=== PATIENT | female | born 1960 | race Caucasian/White ===

== ENCOUNTER 2023-05-05 08:22 | Outpatient (CLI) | payer OTHER, SELFPAY ==
[2023-05-05 09:00] VITALS: PULSE 103; O2SAT 93
[2023-05-05 09:01] VITALS: PULSE 113; O2SAT 87
[2023-05-05 09:02] VITALS: O2SAT 88
[2023-05-05 09:03] VITALS: PULSE 130; O2SAT 91
[2023-05-05 09:08] LABS: Alveolar/Arterial O2 Gradient 35.6 mmHg; Carboxyhemoglobin 1.6 % THb (0-2.0); Fractional Inspired Oxygen 21 %; HCO3 ABG 26.1 mEq/l (22.0-26.0); Methemoglobin ABG 0.3 %THb (0-1.5); Oxygen Content ABG 16.7 %vol (16.0-22.0); PCO2 ABG 48.2 mmHg (35.0-45.0); PO2 ABG 56.4 mmHg (80.0-100.0); PO2 FiO2 Ratio Arterial Blood 2.69 %; Reduced Hemoglobin 11.1 %THb (0-5.0); Total Hemoglobin 13.7 g/dL (12.0-18.0); pH ABG 7.352 (7.350-7.450)
[2023-05-05 09:12] LABS: Oxygen Saturation ABG 87.8 % (95.0-100.0)
[2023-05-05 09:13] LABS: Device ROOM AIR; Modified Allen's Test Pass
[2023-05-05 09:15] VITALS: PULSE 106; O2SAT 93
--- NOTE | 2023-05-05 10:03 | ECHO_ITS ---
Patient Info Name: Maria Guadalupe Hough Age: 62 years : 1960 Gender: Female Ht: 67 in Wt: 144 lbs BSA: 1.76 m2 HR: 113 bpm BP: 140 / 92 mmHg Heart Rhythm: Sinus Rhythm Technical Quality: Fair Exam Date: 05/05/2023 10:05 AM Exam Location: Echo Lab Patient Status: Outpatient Admit Date: 05/05/2023 Staff Ordering Physician: Mina Pitt MD Singeing Torch Operator: Janet Montgomery RDCS Attending Provider: Mina Pitt MD Referring Physician: Yoandy BIRMINGHAM; Exam Type: CA echo doppler color flow Study Info Indications R06.02 - Shortness of breath Complete two-dimensional, color flow and Doppler transthoracic echocardiogram is performed. Summary 1. Complete two-dimensional, color flow and Doppler transthoracic echocardiogram is performed. 2. Left ventricular chamber dimension is normal. 3. Ventricular septum is sigmoid shaped. No LVOT obstruction. 4. Left ventricular systolic function is hyperdynamic, estimated at >70%. 5. The left ventricular diastolic function is grade I diastolic dysfunction. 6. E/e' 6 is not elevated. 7. There is moderate aortic valve sclerosis. 8. No pulmonary hypertension, estimated pulmonary arterial systolic pressure is 39 mmHg. Left Ventricle E/e' 6 is not elevated. Ventricular septum is sigmoid shaped. No LVOT obstruction. Left ventricular chamber dimension is normal. Left ventricular systolic function is hyperdynamic, estimated at >70%. The left ventricular diastolic function is grade I diastolic dysfunction. Right Ventricle Right ventricular systolic function is normal and with normal TAPSE 1.9 cm. Right ventricular chamber dimension is normal. Left Atria Left atrial chamber dimension is normal. Right Atria Right atrial chamber dimension is normal. Aortic Valve The aortic valve is trileaflet. There is moderate aortic valve sclerosis. There is no aortic valve stenosis. There is no aortic valve regurgitation. Pulmonic Valve There is no pulmonic regurgitation. Mitral Valve There is no mitral valve stenosis. There is no mitral valve regurgitation. Tricuspid Valve There is no tricuspid valve regurgitation. No pulmonary hypertension, estimated pulmonary arterial systolic pressure is 39 mmHg. Pericardium/Pleural There is no pericardial effusion. Inferior Vena Cava Normal inferior vena cava with >50% collapse upon inspiration consistent with normal right atrial pressure, 5 mmHg. Aorta The aortic root size at the sinus of Valsalva is normal. Left Ventricular Outflow Tract Name Value Normal LVOT 2D LVOT Diameter 2.0 cm LVOT Doppler LVOT Peak Gradient 8 mmHg LVOT Mean Gradient 4 mmHg LVOT VTI 26 cm LVOT VTI/AV VTI Ratio 0.9 LVOT Stroke Volume 80 ml LVOT CO 7.4 l/min LVOT CI 4.2 l/min/m2 Pulmonic Valve Name Value Normal RVOT Doppler
--- NOTE | 2023-05-05 11:41 | HOMEO2EVAL ---
Evaluation was performed at [facility] Home Oxygen Evaluation RC: Home Oxygen (O2) Evaluation Start: 05/05/23 11:38 Freq: Status: Active Protocol: RPE Activity Type Activity Date Activity User E-sign Co-sign Detail Recorded Client Recorded Date Recorded By Document 05/05/23 09:00 [email or web address] [email or web address] 05/05/23 11:40 LICO Document 05/05/23 09:01 LICO [email or web address] 05/05/23 11:40 LICO Document 05/05/23 09:02 LICO [email or web address] 05/05/23 11:40 LICO Document 05/05/23 09:03 LICO [email or web address] 05/05/23 11:40 LICO Document 05/05/23 09:15 LICO [email or web address] 05/05/23 11:40 LICO 05/05/23 05/05/23 05/05/23 09:00 09:01 09:02 Home O2 Evaluation [Oxygen] -Test Phase Resting Exercise Exercise -Oxygen Delivery Room Air Room Air Nasal Cannula -Oxygen Flow Rate (L/min) 1 [Pulse Oximetry] -Pulse Oximetry (90-100 %) 93 87 L 88 L [Pulse Rate] -Pulse Rate (60-100 beats/min) 103 H 113 H [Exercise] -Ambulation Distance (feet) -Ambulation Distance (meters) [Comments] -Home Oxygen Evaluation Comments [Charges] -Treatment Charges O2 Evaluation - Outpatient 05/05/23 05/05/23 09:03 09:15 Home O2 Evaluation [Oxygen] -Test Phase Exercise Resting -Oxygen Delivery Nasal Cannula Room Air -Oxygen Flow Rate (L/min) 2 [Pulse Oximetry] -Pulse Oximetry (90-100 %) 91 93 [Pulse Rate] -Pulse Rate (60-100 beats/min) 130 H 106 H [Exercise] -Ambulation Distance (feet) 700 -Ambulation Distance (meters) 213.34 [Comments] -Home Oxygen Evaluation Comments PT REQUIRES 2 L WITH ACTIVITY. [Charges] -Treatment Charges
--- NOTE | 2023-05-05 12:26 | WPDPFTINT ---
PFT Procedure Performed PFT Procedure Performed Spirometry with Pre/Post Bronchodilator Plethysmography (Lung Vol) Diffusing Cap (DLCO) Flow Vol Loop PFT Interpretation This is a pulmonary function test with pre and post-bronchodilator spirometry, plethysmography and diffusing capacity. The test was performed and results interpreted in accordance with the 2019 and 2005 ATS/ERS Task Force guidelines respectively using the Global Lung Function Initiative-2012 reference equations. Patient demonstrated good effort and cooperation. Reproducibility criteria were met. The quality of the pre bronchodilator spirometry maneuver was Grade A and post bronchodilator spirometry maneuver was Grade B. Findings: Spirometry: There is decreased maximal expiratory airflow at all lung volumes with concave expiratory flow tracing. The contour the inspiratory flow tracing is normal. The pre bronchodilator FVC is 1.98 L, 57% predicted. The pre bronchodilator FEV1 is 0.52 L, 19% predicted. The pre bronchodilator FEV1: FVC ratio is 27%. The post bronchodilator FVC is 1.70 L, representing a 14% decrease. The post bronchodilator FEV1 is 0.47 L, representing a 9% decrease. The post bronchodilator FEV1: FVC ratio is 28%. Plethysmography: The total lung capacity is 6.33 L, 115% predicted. The functional residual capacity is 4.60 L, 147% predicted. The residual volume is 3.89 L, 180% predicted. Diffusing capacity: The diffusing capacity unadjusted for hemoglobin and carboxyhemoglobin is 6.6, 29% predicted. The diffusing capacity adjusted for alveolar volume is 1.76, 41% predicted. Rest room air blood gas: PH 7.35, PaCO2 48.2, PaCO2 56.4. Impression: There is a very severe obstructive abnormality without significant improvement after inhaling a single dose of albuterol. The increase in residual volume is consistent with air trapping from an obstructive abnormality. Hyperinflation is present as demonstrated by the increase in functional residual capacity and is consistent with an obstructive abnormality. The diffusing capacity unadjusted for hemoglobin and carboxyhemoglobin is severely decreased and remains moderately decreased when adjusted for alveolar volume. The arterial blood gas demonstrates a compensated respiratory acidosis with hypoxia that does not qualify for supplemental oxygen. There are no prior studies for comparison
== END 2023-05-05 08:23 | disposition home or self-care (01) ==
PROVIDERS: Visit Provider Internal Medicine Pulmonary Disease
DX: J44.9 Chronic obstructive pulmonary disease, unspecified (principal); I35.8 Other nonrheumatic aortic valve disorders; R93.1 Abnormal findings on diagnostic imaging of heart and coronary circulation
CPT/HCPCS: 36600; 82375; 82805; 83050; 93306; 94060; 94618; 94726; 94729

== ENCOUNTER 2023-08-18 14:29 | Outpatient (CLI) | payer OTHER, SELFPAY ==
--- NOTE | ~2023-08-18 | CT_ITS ---
EXAMINATION:CT lung screening DATE: 08/18/2023 14:50 INDICATION: Personal history of nicotine dependence. Current smoker with 44 pack year history. TECHNIQUE: Computed tomography (CT) of the chest was performed without intravenous contrast. Automate d exposure control and iterative reconstruction technique were employed. The dose-length product (DLP ) was 66.64 mGy-cm. COMPARISON: None. FINDINGS: There is severe emphysema. There is a 5 mm nodule in right lower lobe. A calcified right leatha ng nodule is consistent with old granulomatous disease. There is an 8 mm nodule in left upper lobe. T here is a 7 mm nodule in left upper lobe. There is scarring in the upper lobes. No pleural effusion. The heart size is normal. There are coronary artery calcifications. No pericardial effusion. There is mild mediastinal lymphadenopathy, likely reactive. Aortic atherosclerosis is noted. There is mild th oracic spondylosis. IMPRESSION: 1. Lung-RADS category 4A: Suspicious. Noncontrast low-dose chest CT is recommended in 3 months. Reviewed, dictated and finalized at location E. IN BAND WRAPPER IMPRESSION: 1. Lung-RADS category 4A: Suspicious. Noncontrast low-dose chest CT is recommen ded in 3 months.
== END 2023-08-18 14:30 | disposition home or self-care (01) ==
PROVIDERS: PCP Family Medicine; Visit Provider Internal Medicine Pulmonary Disease
DX: Z12.2 Encounter for screening for malignant neoplasm of respiratory organs (principal); F17.210 Nicotine dependence, cigarettes, uncomplicated
CPT/HCPCS: 71271

== ENCOUNTER 2023-12-07 12:46 | Outpatient (CLI) | payer OTHER, SELFPAY ==
--- NOTE | ~2023-12-07 | CT_ITS ---
CT Scan of the Chest without Contrast: Clinical Indication: Abnormal findings of lung field Technique: Contiguous sections were acquired throughout the chest without intravenous contrast. Dose reduction technique was used on this scan by utilizing automated exposure control and iterative recon struction technique. The dose-length product (DLP) was 72.10 mGy-cm. COMPARISON: 08/18/2023 Findings: There is no evidence of any significant mediastinal, hilar or axillary lymphadenopathy. The mediastin al soft tissues appear normal. There is no evidence of pleural or pericardial effusion. Significant interval increase in nodular, irregular consolidation versus nodule at the right lung ape x, density now measuring 3.6 x 2.6 cm in extent (axial image 19). Stable 7 mm posterior left upper lo be pulmonary nodule (axial image 33). Stable 9 mm nodule at the anterior left lung apex (axial image 21). Severe emphysema again noted. Images through the upper abdomen reveal no abnormalities. Impression: Significant interval increase in consolidation or nodule at the right lung apex, now measuring 3.6 x 2.6 cm in extent. Findings could reflect pneumonia, atelectasis, or neoplasm. Consider tissue samplin g, PET/CT, or possibly short interval CT in 1 month, to further assess. Stable subcentimeter pulmonary nodules left upper lobe, as above. Severe emphysema. Reviewed, dictated and finalized at location . Impression: Significant interval increase in consolidation or nodule at the right lung apex , now measuring 3.6 x 2.6 cm in extent. Findings could reflect pneumonia, atele ctasis, or neoplasm. Consider tissue sampling, PET/CT, or possibly short interv al CT in 1 month, to further assess. Stable subcentimeter pulmonary nodules left upper lobe, as above. Severe emphysema.
== END 2023-12-07 12:47 | disposition home or self-care (01) ==
PROVIDERS: PCP Family Medicine; Visit Provider Internal Medicine Pulmonary Disease
DX: R91.8 Other nonspecific abnormal finding of lung field (principal); J43.9 Emphysema, unspecified
CPT/HCPCS: 71250

== ENCOUNTER 2024-01-11 11:02 | Outpatient (CLI) | payer OTHER, SELFPAY ==
--- NOTE | ~2024-01-11 | CT_ITS ---
CT Scan of the Chest without Contrast: Clinical Indication: Abnormal finding of lung field Technique: Contiguous sections were acquired throughout the chest without intravenous contrast. Dose reduction technique was used on this scan by utilizing automated exposure control and iterative recon struction technique. The dose-length product (DLP) was 154.90 mGy-cm. COMPARISON: 12/07/2023 Findings: There is no evidence of any significant mediastinal, hilar or axillary lymphadenopathy. The mediastin al soft tissues appear normal. There is no evidence of pleural or pericardial effusion. There is stable irregular masslike consolidation at the right lung apex. Stable 9 mm left apical pulm onary nodule. Severe emphysema is present. Several calcified granulomas are present. Images through the upper abdomen reveal no abnormalities. Impression: Irregular masslike consolidation right lobe apex is unchanged from most recent prior exam. Stable 9 mm left apical pulmonary nodule. Severe emphysema. Reviewed, dictated and finalized at [facility]. Impression: Irregular masslike consolidation right lobe apex is unchanged from most recent prior exam. Stable 9 mm left apical pulmonary nodule. Severe emphysema.
== END 2024-01-11 11:03 | disposition home or self-care (01) ==
PROVIDERS: PCP Family Medicine; Visit Provider Internal Medicine Pulmonary Disease
DX: R91.8 Other nonspecific abnormal finding of lung field (principal); J43.9 Emphysema, unspecified; R91.1 Solitary pulmonary nodule
CPT/HCPCS: 71250

== ENCOUNTER 2024-04-18 12:59 | Outpatient (CLI) | payer OTHER, SELFPAY ==
--- NOTE | ~2024-04-18 | CT_ITS ---
CT Scan of the Chest without Contrast: Clinical Indication: Lung nodule Technique: Contiguous sections were acquired throughout the chest without intravenous contrast. Dose reduction technique was used on this scan by utilizing automated exposure control and iterative recon struction technique. The dose-length product (DLP) was 67.75 mGy-cm. COMPARISON: 01/11/2024 Findings: There is no evidence of any significant mediastinal, hilar or axillary lymphadenopathy. The mediastin al soft tissues appear normal. There is no evidence of pleural or pericardial effusion. Somewhat irregular masslike consolidation at the right lung apex measures 3.1 x 1.8 cm, similar appea david to prior exam. Stable 1 cm left apical pulmonary nodule anteriorly (axial image 16). Severe emp hysema present. Images through the upper abdomen reveal stable left adrenal adenoma. Impression: Stable area somewhat masslike consolidation at the right lung apex. Stable 1 cm left apical pulmonary nodule. Severe emphysema. Reviewed, dictated and finalized at [facility]. Impression: Stable area somewhat masslike consolidation at the right lung apex. Stable 1 cm left apical pulmonary nodule. Severe emphysema.
== END 2024-04-18 13:00 | disposition home or self-care (01) ==
PROVIDERS: PCP Family Medicine; Visit Provider Internal Medicine Pulmonary Disease
DX: R91.8 Other nonspecific abnormal finding of lung field (principal); J43.9 Emphysema, unspecified
CPT/HCPCS: 71250

== ENCOUNTER 2024-10-17 15:59 | Outpatient (CLI) | payer OTHER, SELFPAY ==
--- NOTE | ~2024-10-17 | CT_ITS ---
CT Scan of the Chest without Contrast: Clinical Indication: COPD Technique: Contiguous sections were acquired throughout the chest without intravenous contrast. Dose reduction technique was used on this scan by utilizing automated exposure control and iterative recon struction technique. The dose-length product (DLP) was 153.70 mGy-cm. COMPARISON: 04/18/2024 Findings: There is no evidence of any significant mediastinal, hilar or axillary lymphadenopathy. The mediastin al soft tissues appear normal. There is no evidence of pleural or pericardial effusion. Advanced emphysema present. Stable somewhat triangular-shaped irregular nodule in the right lung apex with associated scarring. Stable 7 mm nodule in the posterior medial left upper lobe (axial image 40 ). Stable additional 1 cm left upper lobe/left apical nodule anteriorly (axial image 26). There is in creased focal right basilar irregular airspace consolidation (axial image 121 for example), which cou ld reflect atelectasis versus focal pneumonia. Images through the upper abdomen reveal 1.8 cm low-density left adrenal nodule, compatible with adeno ma. Impression: Irregular space consolidation the right lung base could reflect focal atelectasis versus pneumonia. C orrelate clinically. Stable triangular-shaped irregular nodule/consolidation in the right lung apex with associated scarri ng. Stable left upper lobe nodules, as detailed above. Reviewed, dictated and finalized at location M. Impression: Irregular space consolidation the right lung base could reflect focal atelectas is versus pneumonia. Correlate clinically. Stable triangular-shaped irregular nodule/consolidation in the right lung apex with associated scarring. Stable left upper lobe nodules, as detailed above.
--- OUTSIDE RECORDS SUMMARY | 2024-10-17 17:46 | XMS_ITS | Encounter Summary ---
Author Organization [facility] Address [address] [place] [address] Care Team Providers Care Oil Paint Shader Name Role Phone Rosario Malave MD Primary Care Provider [phone]- [phone] Macarena Mott NP Primary Care Provider [phone] -[phone] Encounter Details Date Type Department Care Team (Late st Contact Info) Description 08/27/2021 [employer] Message Enc [facility] Family Medicine [facility] [address] [place] [address] [place] [address] Rosario Malave MD [address] [place] [id number] Sleep study results Social History Tobacco Use Types Packs/Day Years Used Date Smoking Tobacco: Every Day Cigarettes Smokeless Tobacco: Never Alcohol Use Standard Drinks/Week Comments Yes 0 (1 standard drink = 0.6 oz pur e alcohol) Vodka PHQ-2 Answer Date Recorded PHQ-2 Score - If the patient scores above 3, please move on to questions 3-9 2 07/23/2021 Comments No Sex and Gender Information Value Date Recorded Sex Assigned at Not on file Legal Sex Female 11:00 AM CDT Gender Identity Female 10/22/2021 8:11 AM CDT Sexual Orientation Straight 10/22/2021 8: 11 AM CDT COVID-19 Exposure Response Date Recorded In the last 10 days, have yo u been in contact with someone who was confirmed or suspected to have Coronavirus/COVID-19? 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
--- OUTSIDE RECORDS SUMMARY | 2024-10-17 17:46 | XMS_ITS | Encounter Summary ---
Author Organization [facility] Address [address] [place] [address] Care Team Providers Care Checker Product Design Name Role Phone Rosario Malave MD Primary Care Provider [phone]- [phone] Macarena Mott NP Primary Care Provider [phone] -[phone] Encounter Details Date Type Department Care Team (Late st Contact Info) Description 03/17/2022 [employer] Message Enc [facility] Family Medicine [facility] [address] [place] [address] [place] [address] Rosario Malave MD [address] [place] [id number] Follow up info Social History Tobacco Use Types Packs/Day Years [...] suspected to have Coronavirus/COVID-19? No / Unsure 02/19/2022 7:50 AM CDT documented as of this encounter Plan of Treatment Not on file documented as of this encounter Visit Diagnoses Not on filedocumented in this encounter Additional Health Concerns Assessment Noted Time PHQ-9 Depression Total Score: 2 07/23/19 22 2:07 PM MANAGER ANDROID documented as of this encounter Care Teams Checker Product Design Relationship Specialty Start Date End Date Rosario Malave MD PCP - General FAMILY PRACTICE 04/04/21 09/08/22 Macarena Mott NP PCP - General Nurse Practitioner Family 09/09/22 documented as of this encounter
--- OUTSIDE RECORDS SUMMARY | 2024-10-17 17:46 | XMS_ITS | Encounter Summary ---
Author Organization [facility] Address [address] [place] [address] Care Team Providers Care Diesel Mechanic Helper Name Role Phone Rosario Malave MD Primary Care Provider [phone]- [phone] Macarena Mott NP Primary Care Provider +1 -[phone] Encounter Details Date Type Department Care Team (Late st Contact Info) Description 04/14/2022 [employer] Message Enc [facility] Medical [facility] Family Medicine [facility] [address] [place] [address] [place] [address] [place] [address] Rosario Malave MD [address] [place] [address] [phone] Husain Social History Tobacco Use Types Packs/Day Years [...] Orientation Straight 10/22/2021 8: 11 AM CDT documented as of this encounter Progress Notes * Suzy Herrera LPN - 04/14/2022 10:22 AM CDTFrom: Sophia Hough To: Dr. Rosario Husain Sent: 04/14/2022 10:19 AM CDT Subject: Update for Dr Husain Hey Dr Husain just wanted to touch base with you, I started the prednisone and I did ok until the second day of it. I felt like my lungs were spasms and I felt like I was having a panic attack maybe not completely sure. So I did get my to get me some of the CBD oil to try over the weeke . I didn't want to bother anyone and I didn't have the strength to go to the ER. The oil did help me some and calm me down. I thank you and your staff tremendously for everything. documented in this encounter Plan of Treatment Not on file documented as of this encounter Visit Diagnoses Not on filedocumented in this encounter Additional Health Concerns Assessment Noted Time PHQ-9 Depression Total Score: 2 07/23/19 22 2:07 PM LAW PROFESSOR documented as of this encounter Care Teams Diesel Mechanic Helper Relationship Specialty Start Date End Date Rosario Malave MD PCP - General FAMILY PRACTICE 04/04/21 09/08/22 Macarena Mott NP PCP - General Nurse Practitioner Family 09/09/22 documented as of this encounter
--- OUTSIDE RECORDS SUMMARY | 2024-10-17 17:46 | XMS_ITS | Encounter Summary ---
Author Organization [facility] Address [address] [place] [address] Care Team Providers Care Acoustic Engineer Name Role Phone Rosario Malave MD Primary Care Provider [phone]- [phone] Macarena Mott NP Primary Care Provider +1 -[phone] Reason for Referral * Consultation/Treatment (Routine) - Closed Specialty Diagnoses / Procedures Referred By Saman carson Referred To Contact SURGERY Diagnoses Nausea Right upper quadrant pain Procedures OFFICE/OUTPT VISIT,NEW,LEVL III OFFICE/OUTPT VISIT,NEW,LEVL IV OFFICE/OUTPT VISIT,NEW,LEVL V OFFICE/OUTPT VISIT,EST,LEVL III OFFICE/OUTPT VISIT,EST,LEVL IV OFFICE/OUTPT VISIT,EST,LEVL V Rosario Malave MD Phone: tel: fax: Adrian Hummel, DO [address] [place] [address] Phone: tel: fax: Referral ID Status Reason Start Date Expiration Date Visits Re quested Visits Authorized [id number] Closed 03/18/2022 03/18/2023 4 4 Encounter Details Date Type Department Care Team (Late st Contact Info) Description 03/13/2022 [employer] Message Enc [facility] Medical [facility] Family [facility] [address] [place], [place] [id number] Rosario Malave MD [address] [place] [address] [place] [address] Up coming appt. information. Social History Tobacco Use Types Packs/Day Years [...] as of this encounter Progress Notes * Rosario Husain MD - 03/13/2022 4:58 PM CDT Let's see how soon Dr. Hummel can see her * Jeni Murrell RN - 03/13/2022 2:44 PM CDTFrom: Sophia Hough To: Dr. Rosario Husain Sent: 03/13/2022 2:00 PM CDT Subject: Up coming appt. information. Julien Husain just wanted to check with you on the GI rerferal. I am as of now scheduled in April for endoscopy. I am wondering if you could help me out with another physician physician or surgeon. I need to speed up this if I can, I am in just too much pain to wait 2 more months on this. I have been having to use some of my [place] pain med., just to get through the day with this. I just needsome relief. Thank you in advance documented in this encounter Plan of Treatment Scheduled Referrals Name Type Priority Associated Diagnoses Orde r Schedule Ambulatory referral to General Surgery Referral Routine Nausea Right upper quadrant pain Ordered: 03/13/2022 documented as of this encounter Visit Diagnoses Diagnosis Nausea- Primary Nausea alone Right upper quadrant pain Abdominal pain, right upper quadrant documented in this encounter Additional Health Concerns Assessment Noted Time PHQ-9 Depression Total Score: 2 07/23/19 22 2:07 PM MERCHANDISE PRESENTATION MANAGER documented as of this encounter Care Teams Acoustic Engineer Relationship Specialty Start Date End Date Rosario Malave MD PCP - General FAMILY PRACTICE 04/04/21 09/08/22 Macarena Mott NP PCP - General Nurse Practitioner Family 09/09/22 documented as of this encounter
--- OUTSIDE RECORDS SUMMARY | 2024-10-17 17:46 | XMS_ITS | Encounter Summary ---
Author Organization [facility] Address [address] [place] [address] Care Team Providers Care Rotary Engraver Name Role Phone Rosario Malave MD Primary Care Provider +1- [phone] Macarena Mott NP Primary Care Provider [phone] -[phone] Encounter Details Date Type Department Care Team (Late st Contact Info) Description 03/28/2022 [employer] Message Enc [facility] Medical Group Family Medicine [facility] [address] [place] [address] [place] [address] Rosario Malave MD [address] [place] [phone] Upcoming appt. Social History Tobacco Use Types Packs/Day Years [...] Total Score: 2 07/23/19 22 2:07 PM GLOVE PRINTER documented as of this encounter Care Teams Rotary Engraver Relationship Specialty Start Date End Date Rosario Malave MD PCP - General FAMILY PRACTICE 04/04/21 09/08/22 Macarena Mott NP PCP - General Nurse Practitioner Family 09/09/22 documented as of this encounter
--- OUTSIDE RECORDS SUMMARY | 2024-10-17 17:46 | XMS_ITS | Clinical Summary ---
Author Organization [facility] Address [address] [place] [address] Care Team Providers Care Dairy Specialist Name Role Phone Rosario Malave MD Primary Care Provide r Source Comments [facility],non-owned Affiliates and Associated Physician Practices is amultiple site organization consisting of ambulatory clinics and hospital sitesin [place], [place], [place] and [place]. This disclosure is being madepursuant to the Care Everywhere program and may not contain all information available regarding this patient. Last updated 18.[facility] Allergies Active Allergy Reactions Criticality Noted Date Comments Augmentin Shortness of Breath High 07/30/2021 Azithromycin Urticaria Medium 07/30/2021 Medications * Be aware that medications may not be up to date on this document. Alwaysverify current medications with the patient. omeprazole (PRILOSEC) 20 MG capsule Take 20 mg by mouth daily before breakfast Active amLODIPine (NORVASC) 5 MG tablet Take 5 mg by mouth once daily Active cloNIDine (CATAPRES) 0.1 MG tablet Take 0.1 mg by mouth 2 times daily Active montelukast (SINGULAIR) 10 MG tablet Take 10 mg by mouth at bedtime Active DULoxetine (CYMBALTA) 20 MG capsule Take 20 mg by mouth once daily Active losartan (COZAAR) 50 MG tablet Take 50 mg by mouth once daily Active HYDROcodone-acet aminophen (NORCO) 10-325 MG tablet Take 1 tablet by mouth 4 times daily Active albuterol HFA (PROVENTIL; VENTOLIN; PROAIR) 108 (90 Base) MCG/ACT inhaler Inhale 2 puffs by mouth every 6 hours as needed Active Fluticasone-Umec lidin-Vilant (TRELEGY ELLIPTA) 100-62.5-25 MCG/INH Inhale by mouth once daily Active ipratropium (ATROVENT) 0.02 % nebulizer solution Inhale 0.5 mg by mouth every 6 hours Active albuterol (5 MG/ML) 0.5% 2.5 mg, ipratropium 0.02 % 0.5 mg Inhale by mouth every 6 hours Active guaiFENesin ER 12hr (MUCINEX) 600 MG tablet Take 600 mg by mouth once daily as needed for Cough Active acetaminophen CR (TYLENOL ARTHRITIS PAIN) 650 MG tablet Take 650 mg by mouth once daily as needed for Pain Active dicyclomine (Bentyl) 20 MG tablet Take 1 (one) tablet by mouth 4 times daily 120 tablet 2 2 Active polyethylene glycol (Gavilyte-C) 240 g solution Drink 1/2 of prep at 5pm the night before test. Finish the prep at 4am the day of test. 4000 mL 3 Active Active Problems Problem Noted Date Diagnosed Date Degeneration of intervertebral disc of lumbar re gion 02/28/2022 Inflammation of peripheral nerve 02/28/2022 Nicotine dependence, unspecified, uncomplicated 02/28/2022 Opioid use, unspecified with withdrawal 02/29/20 Osteoporosis 02/28/2022 Allergic rhinitis 07/23/2021 Chronic obstructive pulmonary disease 07/23/2021 Gastroesophageal reflux disease without esophagi tis 07/23/2021 Hypertension 07/23/2021 Hot flashes 07/23/2021 Overview (10/31/2021): Has done with clonidine in past Started last visit and doing well on it A&P: No changes Hepatitis C virus infection without hepatic coma 04/18/2021 Overview (09/04/2021): Not sure how she contracted this, 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 Last Assessment & Plan: Referred to [facility] hepartitis B core antibody non reactive No immunity to hepatitis B Genotype 1a 09/03/21 Fibroscan LSM, kPa) median: 4.9 CAP 259 History of substance use disorder 04/18/2021 Overview (07/30/2021): She has a history of alcohol use disorder and had recently relapsed She cites moving 4 times in the last year and uncontrolled back pain as per the reasons she started to self medicate We put her on a course of Librium last week and she detoxed successfully She has been going to AA and although she is not thrilled with the meetings she is getting what she needs out of them and is feeling much better after detoxing Last Assessment & Plan: Congratulated her on her efforts, continue aa Spinal stenosis of lumbar re gion without neurogenic claudication 04/18/2021 Overview (07/30/2021): Has been seeing pain management before they moved here and they had her on hydrocodone 0.5-1 tab up to 3 times a day, normally she would take 1 tablet 2 ibuprofen 3 times a day and that works well for her She has had epidural steroid injections with minimal relief, when she had the last injection she had a bad reaction but has maintained that she would be open to revisiting things if needed She is curious about cannabis, has never really used this much but wonders if it would help her more with pain Last Assessment & Plan: She brought her pain management records with her today and so I was able to review them and add them to the record We discussed referring her back to orthopedics versus resuming medical management and she would like to stay on the medications for now We will resume her back to hydrocodone 10-325 1 tab 3 times daily, I have advised she should avoid taking ibuprofen but instead add an additional Tylenol with these hydrocodone We discussed cannabis certification, I am happy to give her this but she wants to think about it a little bit more We also discussed long-term opioid use, the concern with her history of substance use, the need for close monitoring, urine testing, and a controlled substance agreement She voiced understanding and was agreeable to all of this Chronic pain disorder 07/04/2016 Immunizations Immunization Administration Dates Next Due HEP B VACCINE ADOL/ADULT 2 DOSE 09/22/2021 Family History Medical History Relation Name Comments High Cholesterol Brother CAD (Coronary Artery Disease) Father CVA Father Hypertension Father Other - Cardiac Father [place] Asthma Maternal Grandmother CVA Mother Cancer - Colon Other Step brother Diabetes - Type 2 Other Step brother Relation Name Status Comments Brother Father Maternal Grandmother Mother Other Step brother Other Social History Tobacco Use Types Packs/Day Years Used Date Smoking Tobacco: Every Day Cigarettes Smokeless Tobacco: Never Tobacco Cessation:Ready to Q uit: Yes; Counseling Given: Yes Comments:LESS THAN 1/2 PACK PER DAY Alcohol Use Standard Drinks/Week Comments Not Currently 0 (1 standard drink = 0.6 oz pur e alcohol) Comments Unknown Sex and Gender Information Value Date Recorded Sex Assigned at Not on file Legal Sex Female 8:25 AM CDT Gender Identity Not on file Sexual Orientation Not on file Last Filed Vital Signs Vital Sign Reading Time Taken Comments Blood Pressure 128/93 02/28/2022 12:43 PM CDT Pulse 105 02/28/2022 12:43 PM CDT Temperature 36.2 C (97.2 F) 02/28/2022 12:43 PM CDT Respiratory Rate 18 02/28/2022 12:43 PM CDT Oxygen Saturation 95% 02/28/2022 12:43 PM CDT Inhaled Oxygen Concentration - - Weight 62.2 kg (137 lb 3.2 oz) 02/28/2022 12:43 PM CDT Height 171.5 cm (5' 7.5 ) 02/28/2022 12:43 PM CD T Body Mass Index 21.17 02/28/2022 12:43 PM CDT Plan of Treatment Health Maintenance Due Date Last Done Comments COLOGUARD (AGES 45-75) - COLON CA SCREENING 1961 COLON MONITORING 1961 COLONOSCOPY - COLON CA SCREENING 1961 CT COLONOGRAPHY - COLON CA SCREENING 1961 Colorectal Cancer Screening 1961 FIT - COLON CA SCREENING 1961 FLEX SIG - COLON CA SCREENING 1961 MAMMOGRAM 1961 PAP SMEAR 1961 HIV SCREENING 1976 DTAP/TDAP/TD VACCINES (1 - Tdap) 1980 PNEUMOCOCCAL VACCINE 50+ (1 of 2 - PCV) 1980 ZOSTER VACCINE (1 of 2) 2011 Respiratory Syncytial Virus (RSV) Vaccine Pt: or over 60 yrs (1 - Risk 60-74 years 1-dose series) 2021 HEPATITIS B VACCINE (2 of 3 - 19+ 3-dose series) 10/20/2021 09/22/2021 COVID-19 VACCINE (3 - 2023- season) 2024 01/31/2021, 10/30/2020 DEPRESSION SCREENING 06/29/2024 INFLUENZA VACCINE (Season Ended) 2025 07/23/2021, 05/24/2018, 06/04/2017, Additional history exists LIPID TESTING 02/19/2027 02/19/2022 HEPATITIS C SCREENING Completed 02/28/2022 , 02/19/2022, 11/22/2021, Additional history exists HIB VACCINE Aged Out No longer eligi ble based on patient's age to complete this topic HPV VACCINE Aged Out No longer eligi ble based on patient's age to complete this topic MENINGOCOCCAL (Group B) VACCINE SHARED DECISION-MAKING Aged Out No longer eligible based on patient's age to complete this topic MENINGOCOCCAL GROUPS A/C/Y/W VACCINE Aged Out No longer eligible based on patient's age to complete this topic Goals Goal Patient Goal Type Associated Problems Recent Progress Patient-Stated? Author Medication Management General On track( 022 1:23 PM CDT) Breanne Hare, RN Note: Expected end date: ONGOING Interventions: Take all medications as prescribed Insurance Care Teams Dairy Specialist Relationship Specialty Start Date End Date Rosario Malave MD PCP - General 10/31/21
--- OUTSIDE RECORDS SUMMARY | 2024-10-17 17:46 | XMS_ITS | Encounter Summary ---
Author Organization [facility] Address [address] [place] [id number] Care Team Providers Care Leather Piece Inspector Name Role Phone Rosario Malave MD Primary Care Provider [phone] Macarena Mott NP Primary Care Provider [phone] Encounter Details Date Type Department Care Team (Late st Contact Info) Description 01/21/2022 [employer] Message Enc [facility] Family [facility] [address] [place] [address] [place] [address] Rosario Malave MD [address] [place] [phone] Hydrocodone med. Social History Tobacco Use Types Packs/Day Years [...] Progress Notes * Suzy Herrera LPN - 01/21/2022 2:27 PM CDTFrom: Sophia Hough To: Dr. Rosario Husain Sent: 01/21/2022 10:45 AM CDT Subject: Hydrocodone med. Hey Dr Husain, my hydrocodone refill was put for me on 01/17/22. It Will not be shipped out until tomorrow. Just wanted to know if you could put in a 3day supply at the [facility] for me? From here on out I would like for you to in at the [facility] in [place]. Thank you in advance documented in this encounter Plan of Treatment Not on file documented as of this encounter Visit Diagnoses Diagnosis Spinal stenosis of lumbar region without neurogenic claudication Spinal stenosis, lumbar region, without neurogenic claudication documented in this encounter Additional Health Concerns Assessment Noted Time PHQ-9 Depression Total Score: 2 07/23/19 2:07 PM LOAN SUPERVISOR documented as of this encounter Care Teams Leather Piece Inspector Relationship Specialty Start Date End Date Rosario Malave MD PCP - General FAMILY PRACTICE 04/04/21 09/08/22 Macarena Mott NP PCP - General Nurse Practitioner Family 09/09/22 documented as of this encounter
--- OUTSIDE RECORDS SUMMARY | 2024-10-17 17:46 | XMS_ITS | Clinical Summary ---
Author Organization [facility] Address [facility] [place] [address] Care Team Providers Care High Heel Builder Name Role Phone Macarena Mott NP Primary Care Provider [phone] [phone] Allergies Active Allergy Reactions Criticality Noted Date Comments Amoxicillin-Pot Clavulanate Other (see comment),Shortness of Breath High 04/04/2021 SOB Azithromycin Hives Medium 04/04/2021 Medications pseudoephedrine-g uaiFENesin ER 60-600 MG TABLET SR 12 HR 12 hr tablet 0 Active acetaminophen CR 650 MG Tab CR 8 hr tabletIndications :Spinal stenosis of lumbar region without neurogenic claudication Take 1 tablet (650 mg total) by mouth 3 (three) times a day. 270 tablet 1 Active Spacer/Aero-Holdi ng Chambers (AEROCHAMBER PLUS-FLOW SIGNAL) MiscIndications:C hronic obstructive pulmonary disease, unspecified COPD type ([facility]) For use with inhalers 1 each 2 Active ondansetron 4 MG tabletIndications :Nausea TAKE 1 TABLET(4 MG) BY MOUTH EVERY 8 HOURS NEEDED FOR NAUSEA 20 tablet 2 Active OXYGENIndications :Nocturnal hypoxia,Chronic obstructive pulmonary disease, unspecified COPD type ([facility] H[facility]/HCC) 1 L/min by Nasal route nightly. 1 Device 2 Active OXYGENIndications :Oxygen desaturation during sleep 2 L/min by Nasal route nightly. 1 Device 2 Active cetirizine (ZYRTEC) 10 MG tabletIndications :Chronic obstructive pulmonary disease, unspecified COPD type ([facility]) Take 1 tablet (10 mg total) by mouth daily. 30 tablet 2 Active dicyclomine (BENTYL) 20 MG tablet Take 20 mg by mouth 4 (four) times daily. 2 Active HYDROcodone-aceta minophen (NORCO) 10-325 MG tabletIndications :Chronic Pain Indications: Chronic Pain Take one pill by mouth three times a day. 90 tablet 3 Active HYDROcodone-aceta minophen (NORCO) 10-325 MG tabletIndications :Chronic Pain Take 1 tablet by mouth 2 (two) times a day. Indications: Chronic Pain 60 tablet 3 Active HYDROcodone-aceta minophen (NORCO) 10-325 MG tabletIndications :Chronic Pain Take 1 tablet by mouth every other day. Indications: Chronic Pain 15 tablet 3 Active albuterol sulfate HFA 108 (90 Base) MCG/ACT inhalerIndication s:Chronic obstructive pulmonary disease, unspecified COPD type ([facility]) INHALE 2 PUFFS BY MOUTH EVERY 6 HOURS NEEDED FOR WHEEZING 25.5 g 3 Active HYDROcodone-aceta minophen (NORCO) 10-325 MG tabletIndications :Chronic Pain Take 1 tablet by mouth daily. Indications: Chronic Pain 30 tablet 3 Active amLODIPine (NORVASC) 5 MG tabletIndications :Secondary hypertension Take 1 tablet (5 mg total) by mouth daily. 90 tablet 3 3 Active promethazine (PHENERGAN) 25 MG tabletIndications :Nausea Take 1 tablet (25 mg total) by mouth every 6 (six) hours as needed for Nausea. 30 tablet 3 Active PROAIR HFA 108 (90 Base) MCG/ACT inhalerIndication s:Chronic obstructive pulmonary disease, unspecified COPD type ([facility] HHS/HCC) Inhale 2 puffs into the lungs every 6 (six) hours as needed for Wheezing. 54 g 3 Active cloNIDine (CATAPRES) 0.1 MG tabletIndications :Hot flashes Take 1 tablet (0.1 mg total) by mouth 2 (two) times daily. 180 tablet 3 Active Fluticasone-Umecl idin-Vilant (TRELEGY) 100-62.5-25 MCG/ACT AEROSOL POWDER, BREATH ACTIVATEDIndicati ons:Chronic obstructive pulmonary disease, unspecified COPD type ([facility]) Inhale 1 puff into the lungs daily. 84 each 3 Active losartan (COZAAR) 50 MG tabletIndications :Primary hypertension Take 1 tablet (50 mg total) by mouth daily. 90 tablet 3 Active omeprazole (PRILOSEC) 20 MG capsuleIndication s:Gastroesophagea l reflux disease without esophagitis Take 1 capsule (20 mg total) by mouth daily. 90 capsule 3 Active DULoxetine (CYMBALTA) 20 MG capsuleIndication s:Spinal stenosis of lumbar region without neurogenic claudication Take 1 capsule (20 mg total) by mouth daily. 90 capsule 3 Active montelukast (SINGULAIR) 10 MG tabletIndications :Allergic rhinitis, unspecified seasonality, unspecified trigger Take 1 tablet (10 mg total) by mouth nightly at bedtime. 90 tablet 3 Active albuterol sulfate HFA 108 (90 Base) MCG/ACT inhalerIndication s:Chronic obstructive pulmonary disease, unspecified COPD type ([facility]) Inhale 2 puffs into the lungs every 6 (six) hours as needed for Wheezing. 18 g 3 3 Active Active Problems Problem Noted Date Diagnosed Date Healthcare maintenance 10/22/2021 Overview (02/06/2022): Healthcare Maintenance Colon screening: Hep C: Lung screening: AAA screening: Breast screening: Cervical screening: DEXA: Code status: Vaccines: UTD on covid +booster Brought in labs for me to review from 2019, had a slightly elevated AST No lipid profile A&P: We still need to make an appointment to do a dedicated physical, will do screening labs at that time, reassured patient that AST had normalized as of earlier this year Chronic obstructive pulmonar y disease, unspecified COPD type ([facility]/HCC) 07/23/2021 Overview (02/06/2022): On O2 at night now, sleeping much better Has been coughing more and more sob Uses trelegy daily and albuterol 4x/day, using nebulizers daily also Still smoking but down to 5-6 cigarettes daily Last flare was about 4 months ago, after treatment she needed her albuterol once or twice a day and was not really using her nebulizer Wonders if allergies could also be contributing to symptoms, ears feel very plugged up ,already on Singulair A&P: We are going to treat her for a flare today with prednisone and doxycycline. Add on Zyrtec. Congratulated her efforts to reduce tobacco, keep working on it! Call me in a few weeks to let me know how she is doing after treating this flare, and if not really making progress then it may be time for her to see pulmonology Allergic rhinitis, unspecifi ed seasonality, unspecified trigger 07/23/2021 Overview (10/22/2021): On singulair Gastroesophageal reflux disease without esophagi tis 07/23/2021 Overview (02/06/2022): Has had intermittent nausea for years, takes zofran Nausea got worse last few weeks Zofran wasn't working Self increased omepraozle from 20 to 40, taking correctly Not really having heartburn, having pain Pain is in center/right of abd Called recently and we changed zofran to promethazine, pain has calmed down Has vomited x 2, NBNB Also added in lots of probiotic foods Pain was not after eating, no pattern Seemed mostly in morning Has been taking motrin, 4 pills BID every few days No melena A&P: Gastritis versus biliary colic. Stop NSAIDs. Check ultrasound. Will have CMP in the next few weeks for hepatitis follow-up Hot flashes 07/23/2021 Overview (10/22/2021): Has done with clonidine in past Started last visit and doing well on it A&P: No changes Hypertension 07/23/2021 Overview (10/22/2021): Amlodipine 5 mg daily, losartan 50 mg daily A&P: Good control today, no changes Spinal stenosis of lumbar re gion without neurogenic claudication 04/18/2021 Overview (10/22/2021): : No issues with medication since last visit. She is expecting to do a urine drug screen today, discussed that we will do this randomly. Cymbalta started at last visit, we did not discuss this medication in detail today but she is asking for refill so presumably it is helping her A&P: More details on Cymbalta next visit : Pain flared a few weeks before xmas Started to have more sciatica on L side Self increased norco to QID, ran out early and almost had withdrawls Wonders about trying Cymbalta again, took it in the past and is not sure it helped her musculoskeletal complaints, which she states that while she does not feel depressed she can use a little pep and she would like to try it again A&P: Reviewed the controlled substance contract. Patient is aware that if she has change in symptoms and needs medication adjustment she needs to call me instead of running out of the medication and demanding a refill. We also discussed the necessity to monitor this closely in a person with a history of substance use disorder. She was apologetic about her behavior. Going forward we will go ahead and increase her Napoleon to 4 tabs a day and she is aware that we cannot have tolerance for contract violations in the future. We are going to start her on Cymbalta 20 mg, side effects precautions discussed. Follow-up in 3 months. : as been seeing pain management before they moved [...] it would help her more with pain Assessment & Plan (04/18/2021 9:13 PM CDT): She brought her pain management records with [...] and was agreeable to all of this History of substance use disorder 04/18/2021 Overview (04/18/2021): She has a history of alcohol use [...] and is feeling much better after detoxing Assessment & Plan (04/18/2021 9:14 PM CDT): Congratulated her on her efforts, continue aa Hepatitis C virus infection without hepatic coma, unspecified chronicity 04/18/2021 Overview (02/06/2022): Finished mavyret treatment [place] really great for about 3 weeks after but then her GI and respiratory symptoms started acting up A&P: Follow-up per GI Assessment & Plan (04/18/2021 9:15 PM CDT): Referred to [facility] Immunizations Immunization Administration Dates Next Due Fluzone 6 Months+ Quad (0.5 mL Prefilled Syringe ) 07/23/2021 Hepatitis B (Generic: Adult) 10/24/2021,09/23/19 MODERNA COVID-19 (12+) MRNA, LNP-S, PF, 100 MCG/ 0.5 ML DOSE 01/31/2021,10/30/2020 Family History Medical History Relation Comments Heart Disease Father Relation Status Comments Father Social History Tobacco Use Types Packs/Day Years Used Date Smoking Tobacco: Every Day Cigarettes Smokeless Tobacco: Never Alcohol Use Standard Drinks/Week Comments Yes 0 (1 standard drink = 0.6 oz pur e alcohol) Vodka PHQ-2 Answer Date Recorded Patient Health Questionnaire-2 Score 2 07/10/2022 Comments No Sex and Gender Information Value Date Recorded Sex Assigned at Not on file Legal Sex Female 11:00 AM CDT Gender Identity Female 10/22/2021 8:11 AM CDT Sexual Orientation Straight 10/22/2021 8: 11 AM CDT Last Filed Vital Signs Vital Sign Reading Time Taken Comments Blood Pressure 139/89 10/26/2022 5:40 PM CDT Pulse 79 10/26/2022 5:40 PM CDT Temperature 36.7 C (98 F) 10/26/2022 5:40 PM CDT Respiratory Rate 18 10/26/2022 5:40 PM CDT Oxygen Saturation 99% 10/26/2022 5:40 PM CDT Inhaled Oxygen Concentration - - Weight 56.7 kg (125 lb) 10/26/2022 5:40 PM CDT Height 167.6 cm (5' 6 ) 10/26/2022 5:40 PM CDT Body Mass Index 20.18 10/26/2022 5:40 PM CDT Plan of Treatment Health Maintenance Due Date Last Done Comments Colorectal Cancer Screening Colonoscopy (10 Years) 1961 DTaP, Tdap and Td Vaccines (1 - Tdap) 1980 Pneumococcal Vaccine: 50+ Years (1 of 2 - PCV) 1980 Zoster Vaccines (1 of 2) 2011 Mammogram Screening 10/15/2020 10/15/2018, 6 RSV Immunization or 60+ Years (1 - Risk 60-74 years 1-dose series) 2021 Annual Physical 07/10/2023 07/10/2022 COVID-19 Vaccine ( season) 2024 08/14/2021, 01/31/2021, 10/30/2020 PHQ-2 (Physician Carrabelle) 06/29/2024 Cervical Cancer Screening Pap Smear (Age 30 to 64) Every 3 Years 07/10/2025 07/10/2022 Cervical Cancer Screening Pap with HPV Testing (Age 30 to 64) Every 5 Years 07/10/2027 07/10/2022 Cervical Cancer Screening with HPV 07/10/2027 Hepatitis C Completed 04/25/2022, 01/28, 02/19/2022, Additional history exists Meningococcal B Vaccine Aged Out No l onger eligible based on patient's age to complete this topic Meningococcal Vaccine Aged Out No will valencia eligible based on patient's age to complete this topic RSV Immunizations Under 20 Months Aged Out No longer eligible based on patient's age to complete this topic Procedures Procedure Name Priority Date/Time Associated Diagnosis Comments HUMAN PAPILLOMAVIRUS, HIGH-RISK TYPES Routine 07/10/2022 12:00 PM CORRECTIONAL FACILITY NURSE CYTOPATH CERV/VAG THIN LAYER Routine 07/10/2022 4:39 AM CORRECTIONAL FACILITY NURSE MAMMOGRAM GENERIC (SCAN ORDER) 10/15/2018 from Last 3 Months or Most Recently Relevant to Health Maintenance Results * HUMAN PAPILLOMAVIRUS, HIGH-RISK TYPES (07/10/2022 12:00 PM CORRECTIONAL FACILITY NURSE) SPEC DESCRIPTION CERVICAL/END OCERVICAL 07/14/2022 7:25 AM CORRECTIONAL FACILITY NURSE [facility] HPV DNA HIGH RISK NEGATIVE NEGATIVE 07/14/2022 2:50 PM CORRECTIONAL FACILITY NURSE [facility] Comment:SEE CYTOLOGY REPORT 07/10/2022 12:0 0 PM CORRECTIONAL FACILITY NURSE Rosario Malave MD PATHOLOGY/CYTOLOGY ORDERAB LES Final Result [facility] [address] [place] [address], * Cytopath Cerv/Vag Thin Layer (07/10/2022 4:39 AM CORRECTIONAL FACILITY NURSE) THIN PREP PAP [facility] [address] [place] [address] Department of Pathology Pathology Report CERVICAL/VAGINAL PAP SMEAR REPORT Name: JACKIE HOUGH Age: 13 1960 (Age: 62) Location: [facility] Sex: F Collected Date: 07/10/2022 [facility] #: [id number] Date Received: 07/14/2022 Date Reported: 07/15/2022 Provider: ROSARIO MALAVE MD INTERPRETATION CERVICAL/ENDOCERVI HENRY: SATISFACTORY FOR EVALUATION. ENDOCERVICAL/TRANS FORMATION ZONE COMPONENT PRESENT. NEGATIVE FOR INTRAEPITHELIAL LESION OR MALIGNANCY. MILD ATROPHY. NEGATIVE FOR HIGH RISK HPV. The FDA approved Aptima HPV assay is an in vitro nucleic acid amplification test for the qualitative detection of E6/E7 viral messenger RNA (mRNA) from 14 high-risk types of human papillomavirus (HPV) in cervical specimens. The high-risk HPV types detected by the assay include: 16,18,31,33,35,39, 45,51,52,56,58,59, 66, and 68. Electronically Signed Out By NAN Yang (ASCP) CLINICAL HISTORY Z12.4 SCREENING PAP TEST ThinPrep Pap Test with screening HR HPV testing requested, with reflex HPV 16/18 genotyping on negative cytology, positive HR HPV Date of Last Menstrual Period: N/A Menstrual Status: Post-Menopausal SPECIMEN SUBMITTED CERVICAL/ENDOCERVI HENRY Specimen Received:1 Thin Prep Vial, Image Assisted Pap (SMD) Please note: The Pap smear is not a diagnostic test. It is a screening test. Negative results on combined screening (Pap test and HPV-DNA) have a high negative predictive value (99.1-100 percent) for cervical cancer. The pap test is not effective in detecting cervical adenocarcinoma. [facility] 07/10/2022 4:39 AM CORRECTIONAL FACILITY NURSE 07/14/2022 4:39 AM CORRECTIONAL FACILITY NURSE Comment:CERVICAL/ENDOCERVICA L us Rosario Malave MD PATHOLOGY/CYTOLOGY ORDERAB LES Final Result [facility] [address] [employer] [place] [address], * MAMMOGRAM GENERIC (10/15/2018) Anatomical Region Laterality Modality Other 10/15/2018 Narrative 10/15/2018 Ordered by an unspecified provider. us Documents Scanned SCANNING Final Result from Last 3 Months or Most Recently Relevant to Health Maintenance Insurance Care Teams High Heel Builder Relationship Specialty Start Date End Date Macarena Mott NP PCP - General Nurse Practitioner Family 09/09/22
--- OUTSIDE RECORDS SUMMARY | 2024-10-17 17:46 | XMS_ITS | Encounter Summary ---
Author Organization [facility] Address [facility] [place] [address] Care Team Providers Care Wrapper Operator Name Role Phone Macarena Mott NP Primary Care Provider [phone] -[phone] Encounter Details Date Type Department Care Team (Late st Contact Info) Description 12/24/2022 MyChart Message [facility] [address] [place], [place] [id number] [place], [facility] Provider Air Quality Message Social History Tobacco Use Types Packs/Day Years [...] Total Score: 2 07/23/19 22 2:07 PM MACHINE ROOM ENGINEER documented as of this encounter Care Teams Wrapper Operator Relationship Specialty Start Date End Date Macarena Mott NP PCP - General Nurse Practitioner Family 09/09/22 documented as of this encounter
--- OUTSIDE RECORDS SUMMARY | 2024-10-17 17:46 | XMS_ITS | Encounter Summary ---
Author Organization [facility] Address [address] [place] [address] Care Team Providers Care Naval Architect Name Role Phone Rosario Malave MD Primary Care Provider [phone]- [phone] Macarena Mott NP Primary Care Provider +1 -[phone] Encounter Details Date Type Department Care Team (Late st Contact Info) Description 07/25/2022 iQiyi Message Enc [facility] Medical Group Family Medicine [facility] [address] [place] [address] [place] [address] [place], [facility] Provider Medical Marijuana Social History Tobacco Use Types Packs/Day Years [...] suspected to have Coronavirus/COVID-19? No / Unsure 07/10/2022 1:50 PM SHREDDED FILLER CIGAR MAKER MACHINE documented as of this encounter Plan of Treatment Not on file documented as of this encounter Visit Diagnoses Not on filedocumented in this encounter Additional Health Concerns Assessment Noted Time PHQ-9 Depression Total Score: 2 07/23/19 22 2:07 PM SHREDDED FILLER CIGAR MAKER MACHINE documented as of this encounter Care Teams Naval Architect Relationship Specialty Start Date End Date Rosario Malave MD PCP - General FAMILY PRACTICE 04/04/21 09/08/22 Macarena Mott NP PCP - General Nurse Practitioner Family 09/09/22 documented as of this encounter
--- OUTSIDE RECORDS SUMMARY | 2024-10-17 17:46 | XMS_ITS | Encounter Summary ---
Author Organization [facility] Address [address] [place] [address] Care Team Providers Care Chinchilla Farmer Name Role Phone Rosario Malave MD Primary Care Provider +1- [phone] Macarena Mott NP Primary Care Provider +1 -[phone] Encounter Details Date Type Department Care Team (Late st Contact Info) Description 09/15/2021 Tenebrilt Message Enc [facility] Medical Group Family Medicine [facility] [address] [place] [address] [place] [address] Rosario Malave MD [address] [place] [phone] Med refills Social History Tobacco Use Types Packs/Day Years [...] Coronavirus/COVID-19? No / Unsure 08/26/2021 11:19 AM AIR TUBE RELEASER documented as of this encounter Progress Notes * Suzy Herrera LPN - 09/16/2021 8:13 AM CDTFrom: Sophia Hough To: Dr. Rosario Husain Sent: 09/15/2021 10:39 AM CDT Subject: Med refills Hi this is Sophia Hough, I wanted to see if Dr Husain would put my refill in for the cymbalta as well as the hydrocodone in to [facility]. Thank you in advance. documented in this encounter Plan of Treatment Not on file documented as of this encounter Visit Diagnoses Diagnosis Spinal stenosis of lumbar region without neurogenic claudication Spinal stenosis, lumbar region, without neurogenic claudication documented in this encounter Additional Health Concerns Assessment Noted Time PHQ-9 Depression Total Score: 2 07/23/19 22 2:07 PM AIR TUBE RELEASER documented as of this encounter Care Teams Chinchilla Farmer Relationship Specialty Start Date End Date Rosario Malave MD PCP - General FAMILY PRACTICE 04/04/21 09/08/22 Macarena Mott NP PCP - General Nurse Practitioner Family 09/09/22 documented as of this encounter
--- OUTSIDE RECORDS SUMMARY | 2024-10-17 17:46 | XMS_ITS | Encounter Summary ---
Author Organization [facility] Address [address] [place] [address] Care Team Providers Care Director Of Orthopedics Name Role Phone Rosario Malave MD Primary Care Provider +1- [phone] Macarena Mott NP Primary Care Provider +1 -[phone] Encounter Details Date Type Department Care Team (Late st Contact Info) Description 07/13/2022 [employer]uss Technologyt Message Enc [facility] Medical Group Family Medicine [facility] [address] [place] [address] [place] [address] Rosario Malave MD [address] [place] [phone] Upcoming appt. Social History Tobacco Use [...] Coronavirus/COVID-19? No / Unsure 07/10/2022 1:50 PM LAPPING MACHINE OPERATOR documented as of this encounter Progress Notes * Jeni Murrell RN - 07/14/2022 8:58 AM CSTFrom: Sophia Hough To: Dr. Rosario Malave Sent: 07/13/2022 11:52 AM LAPPING MACHINE OPERATOR Subject: Upcoming appt. Hey Dr Malave, just to update you on my ER visit, I did get an X-Ray on my ankle sat. at [facility]. Dr. Jackson is who I seen, he said that nothing was broke, but I had a class 2 sprang, where I had torn some ligaments. He offered me pain meds which I explained that I had my hydrocodone and that I didn' t need them. He told me to add Motrin 3 x a day to it and they put it in a sling. Hesaid to f/up with you at the end of the week of needed. He said to keep doing what I was doing. Just wanted you to know. ING MACHINE OPERATOR documented in this encounter Plan of Treatment Not on file documented as of this encounter Visit Diagnoses Not on filedocumented in this encounter Additional Health Concerns Assessment Noted Time PHQ-9 Depression Total Score: 2 07/23/19 22 2:07 PM LAPPING MACHINE OPERATOR documented as of this encounter Care Teams Director Of Orthopedics Relationship Specialty Start Date End Date Rosario Malave MD PCP - General FAMILY PRACTICE 04/04/21 09/08/22 Macarena Mott NP PCP - General Nurse Practitioner Family 09/09/22 documented as of this encounter
--- OUTSIDE RECORDS SUMMARY | 2024-10-17 17:46 | XMS_ITS | Encounter Summary ---
Author Organization [facility] Address [address] [place] [address] Care Team Providers Care Gis Software Developer Name Role Phone Rosario Malave MD Primary Care Provider +1- [phone] Macarena Mott NP Primary Care Provider [phone] -[phone] Encounter Details Date Type Department Care Team (Late st Contact Info) Description 10/29/2021 hiogit Message Enc [facility] Medical Group Family Medicine [facility] [address] [place] [address] [place] [address] Rosario Malave MD [address] [place] [phone] Oxygen Social History Tobacco Use Types Packs/Day Years [...] suspected to have Coronavirus/COVID-19? No / Unsure 10/22/2021 2:12 PM CDT documented as of this encounter Plan of Treatment Not on file documented as of this encounter Visit Diagnoses Not on filedocumented in this encounter Additional Health Concerns Assessment Noted Time PHQ-9 Depression Total Score: 2 07/23/19 22 2:07 PM IT SECURITY ADMINISTRATOR documented as of this encounter Care Teams Gis Software Developer Relationship Specialty Start Date End Date Rosario Malave MD PCP - General FAMILY PRACTICE 04/04/21 09/08/22 Macarena Mott NP PCP - General Nurse Practitioner Family 09/09/22 documented as of this encounter
--- OUTSIDE RECORDS SUMMARY | 2024-10-17 17:46 | XMS_ITS | Data Portability ---
Author Organization [facility] [employer] [facility], Ern[place] Address [address] [place] [address] Care Team Providers Care Batt Packer Name Role Phone SAMPLEJOSE Referring Provider [phone] Assessment Encounter Date Assessment Date Assessment LastModified by Organization Details LastModified Time 07/25/2019 07/25/2019 Dr. Carrillo Banks reviewed the patients medical history and accompanying office notes. He reassessed the pertinent physical exam findings and participated in a lengthy discussion with the patient regarding our treatment recommendations . - need a copy of her lumbar MRI imaging - consider SI injection - physical therapist with a Jeri therapist - topical pain relievers to that joint. - advised that we do not write for the hydrocodone/APA P - suggested she be referred elsewhere if that is what she wants to continue taking - Will send her to Dr. Silva [email or web address] Not available 07/25/2019 11:20:48 Plan of Treatment Reminders Order Date Submit Date Provider Last Modified By Organization Details Last Modified Time Details Appointments None recorded. Lab None recorded. Referral pain management referral - please place on waiting list for earlier appt 2019 020 Brandon sAcencio MD, [address], [place], [address], 0 09:50:31 Procedures None recorded. Surgeries None recorded. Imaging None recorded. Medication Orders None recorded. Patient TargetsNo targets recorded. Patient Instructions Encounter Date Encounter Id Patient Instructions Last Modified By Organization Details Last Modified Time 07/25/2019 [id number] Medication risks were reviewed. The patient was educated regarding their condition, treatment options as well as prescribed course of treatment. Risks and benefits as well as alternatives to the proposed treatment were also provided to the patient. They were given the opportunity to have all of their questions answered to their satisfaction. Not available 07/25/2019 10:21:16 Healthy lifestyl e recommendations were made including a tobacco free lifestyle, proper diet, and weight control. Not available 07/25/2019 10:21:16 Reason for Referral Pain Management Referral for Low back pain Chronic low back pain. Prior comprehensive pain management at [facility] please place on waiting list for earlier appt Referring Physician: Tanja Sanders, Pain Management, Encounter Date: 07/25/2019 Results Created Date Observation Date Name Description Value Unit Range Abnormal Flag Note LastModifiedBy Organization Detail LastModifiedTime Result Notes None recorded. Problems Name Problem SNOMED Code Status Onset Date Resolution Date Notes Provider Name and Address Organization Details Recorded Time Low back pain 593421492 Active 020 Cierra Hupp [facility] 07/25/2019 10:21:25 Problem Notes None recorded. Procedures Surgical History Date Name Laterality Status Provider Name and Address Organization Details Recorded Time Knee Surgery completed Cierra [facility], [facility] 07/25/2019 10:22:00 Tubal Ligation completed Cierra [facility] 07/25/2019 10:22:06 Imaging Results None recorded. Procedure Notes None recorded. Medical Equipment None Reported. Allergies Allergen ID Allergen Name Allergen Category Reaction Reaction Severity Criticality Documentation Date Start Date Code Code System Note Provider Name and Address Organization Details Recorded Time 89568 Augmentin medicatio n Not available Not available Not available 07/25/2019 77489 2 RxNorm [facility] 0 10:22:15 20176 azithromy darling medicatio n Not available Not available Not available 07/25/2019 42972 RxNorm Cierra Jennifer [facility] 0 10:22:26 Medications Name Sig Start Date Stop Date Status Note LastModified by Organization Details LastModified Time losartan 50 mg tablet active Not Available Not Available Not Available celecoxib 200 mg capsule 07/25 completed Not Available Not Available Not Available clonidine HCl 0.1 mg tablet active Not Available Not Availabl e Not Available prednisone 10 mg tablet 07/25 completed Not Available Not Available Not Available chlorpheniramine 4 mg tablet 07/25 completed Not Available Not Available Not Available doxycycline hyclate 100 mg capsule 07/25 completed Not Available Not Available Not Available albuterol sulfate 2.5 mg/3 mL (0.083 %) solution for nebulization active Not Available Not Available Not Available hydrocodone 5 mg-acetaminophen 325 mg tablet 07/25 completed Not Available Not Available Not Available hydrocodone 10 mg-acetaminophen 325 mg tablet active Not Available Not Availabl e Not Available oxycodone-acetam inophen 5 mg-325 mg tablet 07/25 completed Not Available Not Available Not Available hydrocodone 7.5 mg-acetaminophen 325 mg tablet active Not Available Not Availabl e Not Available lisinopril 10 mg tablet 07/25 completed Not Available Not Available Not Available prednisone 50 mg tablet 07/25 completed Not Available Not Available Not Available lidocaine 5 % topical patch 07/25 completed Not Available Not Available Not Available omeprazole 20 mg capsule,delayed release active Not Available Not Available Not Available montelukast 10 mg tablet active Not Available Not Available No t Available ondansetron 4 mg disintegrating tablet active Not Available Not Available Not Available fluticasone propionate 50 mcg/actuation nasal spray,suspension 07/25 completed Not Available Not Available Not Available ipratropium bromide 0.02 % solution for inhalation active Not Available Not Available N ot Available Mucinex 600 mg tablet, extended release 07/25 completed Not Available Not Available Not Available Prempro 0.3 mg-1.5 mg tablet active Not Available Not Avail able Not Available Spiriva with HandiHaler 18 mcg and inhalation capsules active Not Available Not Available Not Available duloxetine 20 mg capsule,delayed release active Not Available Not Available Not Available AeroChamber Z-Stat Plus-Flow Signal 07/25 completed Not Available Not Available Not Available ProAir HFA 90 mcg/actuation aerosol inhaler active Not Available Not Availa ble Not Available calcium 600 mg (as carbonate)-vitam in D3 10 mcg (400 unit) tablet active Not Available Not Available Not Available Symbicort 160 mcg-4.5 mcg/actuation HFA aerosol inhaler active Not Available Not Available Not Available Flucelvax Quad (PF) 60 mcg (15 mcg x 4)/0.5 mL IM syringe 07/25 completed Not Available Not Available Not Available Vitals Date Recorded Body weight Pain severity - 0-10 verbal numeric rating [Score] - Reported Body mass index (BMI) Body height Provider Name and Address Organization Details Last Updated DateTime 07/25/2019 49716.95 g 4 22.5 kg/m2 172.72 cm Cierra Rodriguez [facility] 07/25/2019 10:47:26 Social History Question Answer Notes LastModified by Organizat ion Details LastModified Time Tobacco Smoking Status Current Every Day Smoker Cierra Rodriguez [facility] 07/25/2019 10:26:25 What Is Your Level Of Alcohol Consumption? None Information not available 07/25/2019 Auto Related Injury? No Information not available 07/25/2019 Are You Currently Employed? Yes Information not available 07/25/2019 Which Of Your Hands Is Dominant? Right Information not available 07/25/2019 Opiod Risk Tool (ORT) Score: 1 Information not available 07/25/2019 Work Related Injury? No Information not available 07/25/2019 Sex: Unknown Functional Status None recorded. Mental Status None recorded. Family History Relationship Description Onset Age of this Age Resolved Age Notes LastModified by Organization Details LastModified Time Father Hypertensive disorder Not available 2019 10:48:11 Medical History Condition Response Coronary Artery Disease N Other N Gout N Hyperthyroidism N MRSA N Head Trauma/Injury N Emphysema N Depression N COPD Y Pneumonia N Prostate Problems N Spine Problems N Gastrointestinal Disease N Paralysis N Obstructive Sleep Apnea N Anxiety Disorder N Vision or Eye Problems N Arthritis N Acid Reflux (GERD) N Cancer N Stroke N Crohn's Disease N Leg or Foot Ulcers N Neck Injury N Other Sleep Disorders N Arrhythmia N Rheumatoid Arthritis N Headaches N Fibromyalgia N Kidney Disease N Heart Problems N Hospitalizations N Migraines N Kidney or Bladder Problems N Skin Problems N Joint Pain N Encephalitis N Neck Pain N PTSD N Meningitis N Urinary Problems N Brain Injury N Ulcers N Bleeding Disorder N Tuberculosis N Cerebral Palsy N AIDS/HIV N Back Problems N Asthma N Amputation N Substance Abuse N Peripheral Vascular Disease N Vertigo N Sleep Disorder N Hepatitis N Neuropathy N Pulmonary Embolism N Anxiety/Depression N Hernia N Ostomy N Lung Disease N Hypothyroidism N Tremor N Pacemaker N Vascular Disease N Orthopedic Problems N Spasticity N Orthotics N Serious Illness or Injuries N Congenital Anomalies N Alcohol Overuse/Alcohol Abuse N Back Injury N High Cholesterol N Meniers N Liver Disease N Parkinson's Disease N Falls N Thyroid Problems N ADD/ADHD N Osteoporosis/Osteopenia N Anemia N Back Pain Y Multiple Sclerosis N Heart Attack ([place]) N Mental Illness N Neurological Problems N Diabetes N Brain Tumor N Seizures/Epilepsy N Congestive Heart Failure (CHF) N Hyperlipidemia N Dementia N Ankylosing Spondylitis N Lupus N Epilepsy/Seizures N Sleep Apnea N Mental Problems N Aneurysm N Heart Disease N Hypertension Y Osteoporosis N Gynecological HistoryNo gynecological history recorded. Obstetrics History GPAL:G 0 P 0 0 0 0 Immunizations Vaccine Type Date Status Note Provider Nam e and Address Organization Details Recorded Time Influenza, recombinant, quadrivalent, PF 04/29/2020 completed Ceirra Rodriguez [facility] 07/25/2019 10:26:14 Past Encounters Encounter ID Performer Location Encounter Start Date Encounter Closed Date Diagnosis/Indication Diagnosis SNOMED-CT Code Diagnosis ICD10 Code Diagnosis Note [id number] Tanja Sanders NP [address] [address] 07/25/2019 10:16:04 07/25/2019 11:26:49 Low back pain 310470132 M54.5 Inflammati on of sacroiliac joint 05222593 M46.1 Health Concerns Section Related Observation LastModified by Organization Detai ls LastModified Time None Recorded Concern Status LastModified by Organization Details LastModified Time None Recorded Advance Directives Directive None Recorded Payers Encounter Date Sequence Insurance Name Policy Number Policy Langford Covered Member ID Langford Member ID Guarantor Name 07/25/2019 1 [employer] - DOS PRIOR TO 2024 - [employer] - PRIME () Sophia Hough [id number] Sophia Hough Notes Date Note Type Note Provider Name and Address Organization Details Recorded Time 07/25/2019 text/html Lumbar spine/Low er Back Pain GPSReported bypatient.Location :posterior Quality:aching; gnawing; stabbing; throbbing; sharp; constant Duration:many years Timing:chronic Alleviating Factors:heat; narcotics Aggravating Factors:standing; bending/squatting Associated Symptoms:no numbness; no tingling; no swelling; no redness; no warmth; no ecchymosis; no catching/locking; no popping/clicking; no buckling; no grinding; no instability; no radiation down leg; no drainage; no fever; no chills; no weight loss; no sexual dysfunction; no change in bowel/bladder habits;weakness Previous Surgery:none Prior Imaging:MRI Previous Injections:did not help Previous PT:did not help chronic LBP tx'd by PCP - PT, acupuncture, KIRIT's (no help) most recent MRI 2019 at [facility] had a recent fall, landing on left hip and shoulder 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 Ortiz, but states her PCP told her not to take it. Tanja Sanders NP [address] [place], [address], [facility] 09/13/2019 10:16:07 OBGyn Episode No OBEpisode recorded.
--- OUTSIDE RECORDS SUMMARY | 2024-10-17 17:46 | XMS_ITS | Encounter Summary ---
Author Organization [facility] Address [address] [place] [address] Care Team Providers Care Ship'S Carpenter Name Role Phone Rosario Malave MD Primary Care Provider [phone]- [phone] Macarena Mott NP Primary Care Provider [phone] -[phone] Encounter Details Date Type Department Care Team (Late st Contact Info) Description 07/14/2022 Wazzapt Message Enc [facility] Family Medicine [facility] [address] [place] [address] [place] [address] Rosario Malave MD [address] [place] [id number] Malave on previous message Social History Tobacco Use Types Packs/Day Years [...] Coronavirus/COVID-19? No / Unsure 07/10/2022 1:50 PM CROP RANCH HAND documented as of this encounter Progress Notes * Jeni Murrell RN - 07/14/2022 12:47 PM CSTFrom: Sophia Hough To: Dr. Rosario Malave Sent: 07/14/2022 10:20 AM CROP RANCH HAND Subject: Update for Dr. Malave on previous message Just wanted to let you know that I started ice and elevation of it Thursday I meant to tell you also that Dr Jackson told me a couple of exercises to do when I could at home. Thank you RANCH HAND documented in this encounter Plan of Treatment Not on file documented as of this encounter Visit Diagnoses Not on filedocumented in this encounter Additional Health Concerns Assessment Noted Time PHQ-9 Depression Total Score: 2 07/23/19 22 2:07 PM CROP RANCH HAND documented as of this encounter Care Teams Ship'S Carpenter Relationship Specialty Start Date End Date Rosario Malave MD PCP - General FAMILY PRACTICE 04/04/21 09/08/22 Macarena Mott NP PCP - General Nurse Practitioner Family 09/09/22 documented as of this encounter
--- OUTSIDE RECORDS SUMMARY | 2024-10-17 17:46 | XMS_ITS | Encounter Summary ---
Author Organization [facility] Address [address] [place] [address] Care Team Providers Care Office Machines Sales Representative Name Role Phone Rosario Malave MD Primary Care Provider [phone]- [phone] Macarena Mott NP Primary Care Provider [phone] -[phone] Encounter Details Date Type Department Care Team (Late st Contact Info) Description 11/15/2021 Soliot Message Enc [facility] Medical Group Family Medicine [facility] [address] [place] [address] Rosario Malave MD [address] [place] [id number] Med refills Social History Tobacco Use [...] PM CDT documented as of this encounter Progress Notes * Suzy Herrera LPN - 11/15/2021 8:14 AM CDTFrom: Sophia Hough To: Dr. Rosario Husain Sent: 11/15/2021 6:21 AM CDT Subject: Med refills Hi, this is Sophia Watersfernando, my is 62, my phone number is [phone]. Just wanted to seeif Dr Husain would put my refill in to [facility] for my hydrocodone and my singular. Thank you in advance documented in this encounter Plan of Treatment Not on file documented as of this encounter Visit Diagnoses Diagnosis Spinal stenosis of lumbar region without neurogenic claudication Spinal stenosis, lumbar region, without neurogenic claudication Allergic rhinitis, unspecified seasonality, unspecified trigger documented in this encounter Additional Health Concerns Assessment Noted Time PHQ-9 Depression Total Score: 2 07/23/19 22 2:07 PM RN BIRTHING documented as of this encounter Care Teams Office Machines Sales Representative Relationship Specialty Start Date End Date Rosario Malave MD PCP - General FAMILY PRACTICE 04/04/21 09/08/22 Macarena Mott NP PCP - General Nurse Practitioner Family 09/09/22 documented as of this encounter
--- OUTSIDE RECORDS SUMMARY | 2024-10-17 17:46 | XMS_ITS | Encounter Summary ---
Author Organization [facility] Address [address] [place] [address] Care Team Providers Care Sports Bookmaker Name Role Phone Rosario Malave MD Primary Care Provider [phone]- [phone] Macarena Mott NP Primary Care Provider [phone] -[phone] Encounter Details Date Type Department Care Team (Late st Contact Info) Description 03/12/2022 Group Therapy Recordst Message Enc [facility] Medical [facility] Family Medicine [facility] [address] [place] [address] Rosario Malave MD [address] [place] [phone] Up coming appt. information. Social History Tobacco [...] Progress Notes * Suzy Herrera LPN - 03/12/2022 9:50 AM CDTFrom: Sophia Hough To: Dr. Rosario Husain Sent: 03/12/2022 9:49 AM CDT Subject: Up coming appt. information. Hey Dr Husain just wanted to keep you in the loop with GI info. I spoke to Mrs. Bangura and at this point I am scheduled for a Endoscopy and Colonoscopy on 05/15/22 at 8:00. They said that I should contact your office for a referral. Thank you in advance. Needless to say 05/15/22 can can't get her e quick enough lol! documented in this encounter Plan of Treatment Not on file documented as of this encounter Visit Diagnoses Not on filedocumented in this encounter Additional Health Concerns Assessment Noted Time PHQ-9 Depression Total Score: 2 07/23/19 22 2:07 PM CARGO SERVICE AGENT documented as of this encounter Care Teams Sports Bookmaker Relationship Specialty Start Date End Date Rosario Malave MD PCP - General FAMILY PRACTICE 04/04/21 09/08/22 Macarena Mott NP PCP - General Nurse Practitioner Family 09/09/22 documented as of this encounter
--- OUTSIDE RECORDS SUMMARY | 2024-10-17 17:46 | XMS_ITS | Encounter Summary ---
Author Organization [facility] Address [address] [place] [address] Care Team Providers Care Wound Care Physician Name Role Phone Rosario Malave MD Primary Care Provider [phone]- [phone] Macarena Mott NP Primary Care Provider [phone] -[phone] Encounter Details Date Type Department Care Team (Late st Contact Info) Description 07/24/2021 Meilele Message Enc [facility] Family Medicine [facility] [address] [place] [address] Rosario Malave MD [address] [place] [phone] Medication Social History Tobacco Use Types Packs/Day Years [...] Exposure Response Date Recorded In the last month, have you been in contact with someone who was confirmed or suspected to have Coronavirus / COVID-19? No / Unsure 07/23/2021 1:48 PM SOFTWARE ENGINEERING SPECIALIST documented as of this encounter Plan of Treatment Not on file documented as of this encounter Visit Diagnoses Not on filedocumented in this encounter Additional Health Concerns Assessment Noted Time PHQ-9 Depression Total Score: 2 07/23/19 22 2:07 PM SOFTWARE ENGINEERING SPECIALIST documented as of this encounter Care Teams Wound Care Physician Relationship Specialty Start Date End Date Rosario Malave MD PCP - General FAMILY PRACTICE 04/04/21 09/08/22 Macarena Mott NP PCP - General Nurse Practitioner Family 09/09/22 documented as of this encounter
--- OUTSIDE RECORDS SUMMARY | 2024-10-17 17:46 | XMS_ITS | Encounter Summary ---
Author Organization [facility] Address [address] [place] [address] Care Team Providers Care Nurse Leader Name Role Phone Rosario Malave MD Primary Care Provider +1- [phone] Macarena Mott NP Primary Care Provider +1 -[phone] Encounter Details Date Type Department Care Team (Late st Contact Info) Description 03/08/2022 TheShelft Message Enc [facility] Family Medicine [facility] [address] [place] [place] [address] Rosario Malave MD [address] [place] [address] [phone] Hep C doc appt on 02/28/22 Social History Tobacco Use Types Packs/Day Years [...] Progress Notes * Suzy Herrera LPN - 03/10/2022 9:14 AM CDTFrom: Sophia Hough To: Dr. Rosario Husain Sent: 03/08/2022 3:38 PM CDT Subject: Hep C doc appt on 02/28/[address] Husain, thank you for my refill on the phenergan. I did see Mrs Bangura my hep c provider. She was leaning towards my issue with my abd ultrasound as IBS. She was going to put it on a Drs. desk for review. I started generic bentyl 20 mg qid. I return to see her in 3 months. I have very mixed f eelings about this. She told me that so if we take the gall bladder and you still have the problem, it would be a waste of time and effort. I just don't want to go through this the next 3 monthsif I don't have to. Would like your input on this. Thank you in advance documented in this encounter Plan of Treatment Not on file documented as of this encounter Visit Diagnoses Not on filedocumented in this encounter Additional Health Concerns Assessment Noted Time PHQ-9 Depression Total Score: 2 07/23/19 22 2:07 PM PERSONAL VEHICLE ADVISOR documented as of this encounter Care Teams Nurse Leader Relationship Specialty Start Date End Date Rosario Malave MD PCP - General FAMILY PRACTICE 04/04/21 09/08/22 Macarena Mott NP PCP - General Nurse Practitioner Family 09/09/22 documented as of this encounter
--- OUTSIDE RECORDS SUMMARY | 2024-10-17 17:46 | XMS_ITS | Encounter Summary ---
Author Organization [facility] Address [address] [place] [address] Care Team Providers Care Cementing Bulk Material Operator Name Role Phone Rosario Malave MD Primary Care Provider +1- [phone] Macarena Mott NP Primary Care Provider [phone] -[phone] Encounter Details Date Type Department Care Team (Late st Contact Info) Description 07/23/2022 Guided Delivery Systemst Message Enc [facility] Medical [facility] Family Medicine [facility] [address] [place] [address] Rosario Malave MD [address] [place] [phone] Medical marijuana card Social History Tobacco Use Types Packs/Day Years [...] Coronavirus/COVID-19? No / Unsure 07/10/2022 1:50 PM LAB TECHNOLOGIST documented as of this encounter Progress Notes * Jeni Murrell RN - 07/24/2022 4:54 PM CSTFrom: Sophia Hough To: Dr. Rosario Malave Sent: 07/23/2022 4:57 PM LAB TECHNOLOGIST Subject: Medical marijuana card Hey Dr Malave, I was just checking back with you in reference to a medical marijuana card. I am very concerned about the withdrawal of coming off the hydrocodone. I know after researching the withdrawal symptoms, am going to be very nauseous and sick. I am truly not looking forward to this. Wouldyou be interested in helping me with a medical marijuana card? I have stopped the alcohol, but truthfully I know l am going to help with this, I know we are working me down on the amount of tablets Itake now, but honestly I am afraid of how I am going to feel. I would really appreciate it if you could do this for me. Thank you in advance TECHNOLOGIST documented in this encounter Plan of Treatment Not on file documented as of this encounter Visit Diagnoses Not on filedocumented in this encounter Additional Health Concerns Assessment Noted Time PHQ-9 Depression Total Score: 2 07/23/19 22 2:07 PM LAB TECHNOLOGIST documented as of this encounter Care Teams Cementing Bulk Material Operator Relationship Specialty Start Date End Date Rosario Malave MD PCP - General FAMILY PRACTICE 04/04/21 09/08/22 Macarena Mott NP PCP - General Nurse Practitioner Family 09/09/22 documented as of this encounter
--- OUTSIDE RECORDS SUMMARY | 2024-10-17 17:46 | XMS_ITS | Encounter Summary ---
Author Organization [facility] Address [address] [place] [id number] Care Team Providers Care Matcher Offbearer Name Role Phone Rosario Malave MD Primary Care Provider +1- [phone] Macarena Mott NP Primary Care Provider +1 -[phone] Encounter Details Date Type Department Care Team (Late st Contact Info) Description 09/04/2021 [employer] Message Enc [facility] Family Medicine [facility] [address] [place] [address] [place] [address] Rosario Malave MD [address] [place] [phone] Hepatitis questions Social History Tobacco Use Types Packs/Day Years [...] Coronavirus/COVID-19? No / Unsure 08/26/2021 11:19 AM RATE MARKER documented as of this encounter Plan of Treatment Not on file documented as of this encounter Visit Diagnoses Not on filedocumented in this encounter Additional Health Concerns Assessment Noted Time PHQ-9 Depression Total Score: 2 07/23/19 22 2:07 PM RATE MARKER documented as of this encounter Care Teams Matcher Offbearer Relationship Specialty Start Date End Date Rosario Malave MD PCP - General FAMILY PRACTICE 04/04/21 09/08/22 Macarena Mott NP PCP - General Nurse Practitioner Family 09/09/22 documented as of this encounter
--- OUTSIDE RECORDS SUMMARY | 2024-10-17 17:46 | XMS_ITS | Encounter Summary ---
Author Organization [facility] Address [address] [place] [address] Care Team Providers Care Garden Machinery Mechanic Name Role Phone Rosario Malave MD Primary Care Provider +1- [phone] Macarena Mott NP Primary Care Provider +1 -[phone] Encounter Details Date Type Department Care Team (Late st Contact Info) Description 03/12/2022 [employer] Partner[employer] Message Enc [facility] Family Medicine [facility] [address] [place] [address] Rosario Malave MD [address] [place] [phone] Addendum to previous message Social History Tobacco Use Types [...] Total Score: 2 07/23/19 22 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
--- OUTSIDE RECORDS SUMMARY | 2024-10-17 17:46 | XMS_ITS | Encounter Summary ---
Author Organization [facility] Address [address] [place] [address] Care Team Providers Care Administrative Services Assistant Name Role Phone Rosario Malave MD Primary Care Provider [phone]- [phone] Macarena Mott NP Primary Care Provider +1 -[phone] Encounter Details Date Type Department Care Team (Late st Contact Info) Description 11/01/2021 [place] [employer] Message Enc [facility] Family Medicine [facility] [address] [place] [address] Rosario Malave MD [address] [place] [phone] Hep C results Social History Tobacco Use Types Packs/Day [...] as of this encounter Progress Notes * Dinorah Krause MA - 11/01/2021 11:27 AM CDT documented in this encounter Plan of Treatment Not on file documented as of this encounter Visit Diagnoses Not on filedocumented in this encounter Additional Health Concerns Assessment Noted Time PHQ-9 Depression Total Score: 2 07/23/19 22 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
--- OUTSIDE RECORDS SUMMARY | 2024-10-17 17:46 | XMS_ITS | Encounter Summary ---
Author Organization [facility] Address [address] [place] [address] Care Team Providers Care Heating Equipment Repairer Name Role Phone Rosario Malave MD Primary Care Provider +1- [phone] Macarena Mott NP Primary Care Provider +1 -[phone] Encounter Details Date Type Department Care Team (Late st Contact Info) Description 03/21/2022 [employer] Message Enc [facility] Family Medicine [facility] [address] [place] [address] [place] [address] Rosario Malave MD [address] [phone] Upcoming appt. Social History Tobacco Use [...] Progress Notes * Suzy Herrera LPN - 03/21/2022 9:50 AM CDTFrom: Sophia Hough To: Dr. Rosario Husain Sent: 03/21/2022 9:27 AM CDT Subject: Upcoming appt. Hey Dr Husain just wanted to give you a head's up. I have a nuclear med appt at [facility] that Mrs. Bangura put in for Thursday at 8:00. Just wanted to let you know what is going on. Thank you in advance. 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
--- OUTSIDE RECORDS SUMMARY | 2024-10-17 17:46 | XMS_ITS | Data Portability ---
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 Lab hepatitis C RNA, quant, PCR, serum 2020 021 [facility] (Lab), [address], [place], [address], 15:21:26 HBsAg (hepatiti s B surface Ag), serum 2020 021 [facility] (Lab), [address], [place], [address], 19:07:14 unlisted lab - shh - hepatitis A IgM 2020 021 [facility] (Lab), [address], [place], [address], 19:07:14 hepatitis C genotype, serum or plasma 2020 [email or web address] [facility] (Lab), [address], [place], [address], 10:05:53 HIV 1+O+2 Ab, QN, serum 2020 [facility] (Lab), [address], [place], [address], 19:07:16 afp (alpha-fe toprotein ), serum 2020 [facility] (Lab), [address], [place], [address], 19:26:32 carcinoem bryonic Ag, quant, serum or plasma 2020 [facility] (Lab), [address], [place], [address], 19:26:31 urinalysi s, complete 2020 [facility] (Lab), [address], [place], [address], 19:19:53 culture, urine 2020 [facility] (Lab), [address], [place], [address], 21:11:54 PTH (parathyr oid hormone), intact, serum or plasma 2020 [facility] (Lab), [address], [place], [address], 18:51:25 calcium, ionized, blood 2020 [facility] (Lab), [address], [place], [address], 19:54:00 alpha-1-a ntitrypsi n (aat) phenotype , serum 2020 [facility] (Lab), [address], [place], [address], 22:07:32 alpha-1-a ntitrypsi n (aat), QN, serum [address] (Lab), [address], [place], [address], 10:06:15 alpha-1-a ntitrypsi n (aat) phenotype , serum [address] [facility] (Lab), [address], [place], [address], 08:41:08 alpha-1-a ntitrypsi n (aat), QN, serum [address] [facility] (Lab), [address], [place], [address], 08:41:08 lipid panel, serum [address] [facility] (Lab), [address], [place], [address], 08:41:08 CBC w/ auto diff [address] [facility] (Lab), [address], [place], [address], 08:41:08 CMP, serum or plasma [address] [facility] (Lab), [address], [place], [address], 08:41:08 urinalysi s, complete [address] [facility] (Lab), [address], [place], [address], 08:41:09 culture, urine [address] [facility] (Lab), [address], [place], [address], 08:41:09 HbA1c (hemoglob in A1c), blood [address] [facility] (Lab), [address], [place], [address], 08:41:09 unlisted lab - shh - TSH W reflex FT4 2020 [facility] (Lab), [address], [place], [address], 16:34:24 vitamin D, 25-hydrox y, total, serum [address] [facility] (Lab), [address], [place], [address], 08:41:09 hepatitis C virus Ab, serum [address] [facility] (Lab), [address], [place], [address], 08:41:09 Referral gastroent erologist referral 2020 [email or web address] Abdi MD - [facility], [address], [address], [place], [address], 11:25:26 pulmonolo gist referral 2020 [email or web address] [facility], [address], [place], [address], 16:27:57 urologist referral 2020 [email or web address] Not available 10:15:02 pain managemen t referral 2020 021 [email or web address] 61 [facility] DO ([facility]), [address] [place], [address], 09:22:37 pain managemen t referral - Any questions contact [phone] [email or web address] [facility] DO ([facility]), [address] [place], [address], 11:49:08 gastroent erologist referral 2020 021 BRYAN Abdi MD - [facility], [address], [address], [place], [address], 05:01:23 Procedures None recorded. Surgeries None recorded. Imaging NM, sestamibi scan 2020 021 [email or web address] [facility] ([facility]), [address], [place], [address], 10:17:29 nuclear stress test 2020 021 [email or web address] [facility] ([facility]), [address], [place], [address], 08:50:01 PFT, complete - [place] please 2020 [facility] ([facility]), [address], [place], [address], 13:51:11 XR, chest, 2 view 2020 [facility], [address], [place], [address], 11:54:49 US, echocardi ogram, transthor acic, complete, w/ color flow 2020 [facility], [address], [address], [place], [address], 09:21:06 CT, coronary calcium score 2020 [facility] ([facility]), [address], [place], [address], 1 13:43:50 LDCT, chest, for lung cancer screening 2020 [email or web address] [facility], [address], [address], [place], [address], 1 12:26:17 electroca rdiogram 2020 [facility], [address], [place], [address], 10:56:30 Medication Orders amlodipin e 5 mg tablet 2020 [facility], [facility], [place], [address], 1 16:36:02 losartan 50 mg tablet 2020 [facility], [address] [place] [address], [address], 1 16:35:52 omeprazol e 20 mg capsule,d elayed release 2020 [facility], [address] [place] [address], [address], 1 16:35:52 Pratik Low Dose Aspirin 81 mg tablet,de layed release 2020 [facility], [address] [place] [address], [address], 1 16:35:54 hydrocodo ne 10 mg-acetam inophen 325 mg tablet 2020 [id number] [address], [address] [place], [address], 1 16:36:04 ergocalci ferol (vitamin D2) 1,250 mcg (50,000 unit) capsule 2020 [facility], [address] [place] [address], [address], 1 16:35:57 Daliresp 250 mcg tablet 2020 [facility] [employer], [address] [place], [address], 1 11:31:34 albuterol sulfate 2.5 mg/3 mL (0.083 %) solution for nebulizat ion 2020 [facility], [address] [place] [address], [address], 1 16:35:59 ProAir HFA 90 mcg/actua tion aerosol inhaler 2020 [facility], [address] [place], [address], 16:35:56 Trelegy Ellipta 100 mcg-62.5 mcg-25 mcg powder for inhalatio n 2020 [facility], [address] [place], [address], 16:35:58 nicotine 7 mg/24 hr daily transderm al patch 2020 [facility] Nathalia [facility], [address] [place], [address], 17:44:30 hydrocodo ne 10 mg-acetam inophen 325 mg tablet 2020 [facility], [address] [place], [address], 17:44:43 Vitamin D2 1,250 mcg (50,000 unit) capsule 2020 [facility], [address] [place], [address], 17:44:39 Trelegy Ellipta 100 mcg-62.5 mcg-25 mcg powder for inhalatio n 2020 021 [facility], [address] [place], [address], 17:44:36 albuterol sulfate 2.5 mg/3 mL (0.083 %) solution for nebulizat ion 2020 [facility], [address] [place], [address], 17:44:33 hydrocodo ne 10 mg-acetam inophen 325 mg tablet 2020 [facility] Nathalia Martinez, [address] [place], [address], 17:00:43 Pratik Low Dose Aspirin 81 mg tablet,de layed release 2020 [facility], [address] [place], [address], 17:00:36 nicotine 14 mg/24 hr daily transderm al patch [address], [address] [place] [address], [address], 17:40:39 nicotine 7 mg/24 hr daily transderm al patch [address], [address] [place] [address], [address], 20:34:21 nicotine 21 mg/24 hr daily transderm al patch [address], [address] [place] [address], [address], 17:40:37 amlodipin e 5 mg tablet 2020 [facility], [address] [place], [address], 17:00:38 Patient TargetsNo targets recorded. Patient Instructions Encounter Date Encounter Id Patient Instructions Last Modified By Organization Details Last Modified Time 09/12/2020 [id number] allergies: care instructions Not available 09/12/2020 17:00:28 managing your allergies: care instructions Not available 09/12/2020 17:00:25 spinal stenosis: care instructions Not available 09/12/2020 17:00:25 chronic obstruct shree pulmonary disease (COPD): care instructions Not available 09/12/2020 17:00:25 learning about C OPD and how to prevent lung infections Not available 09/12/2020 17:00:26 stay at [facility] weight Not available 09/12/2020 17:00:27 lumbar stenosis: care instructions Not available 09/12/2020 17:00:27 deciding about u sing medicines to quit smoking Not available 09/12/2020 17:00:28 Quitting Tobacco : Care Instructions Not available 09/12/2020 17:00:27 acute high blood pressure: care instructions Not available 09/12/2020 17:00:26 gastroesophageal reflux disease (GERD): care instructions Not available 09/12/2020 17:00:27 preventing osteoporosis: care instructions Not available 09/12/2020 17:00:26 controlling your asthma: care instructions Not available 09/12/2020 17:00:25 learning about asthma Not available 09/12/2020 17:00:27 asthma: your act ion plan Not available 09/12/2020 17:00:26 A total of 50 minutes were spent during this encounter and over half of that time was spent on counseling and coordination of care. Not available 09/17/2020 20:38:35 10/25/2020 [id number] spinal stenosis: care instructions Not available 10/25/2020 17:44:26 lumbar stenosis: care instructions Not available 10/25/2020 17:44:26 11/13/2020 [id number] deciding about u sing medicines to quit smoking Not available 11/13/2020 16:35:47 Quitting Tobacco : Care Instructions Not available 11/13/2020 16:35:48 spinal stenosis: care instructions Not available 11/13/2020 16:35:48 learning about hepatitis C Not available 11/13/2020 16:35:48 chronic obstruct shree pulmonary disease (COPD): care instructions Not available 11/13/2020 16:35:47 lumbar stenosis: care instructions Not available 11/13/2020 16:35:48 learning about hypoxemia Not available 11/13/2020 16:35:47 6 minute walk test* Not avail able 11/13/2020 16:35:47 application of oxygen* Not available 11/13/2020 16:35:48 chronic obstruct shree pulmonary disease (COPD): care instructions Not available 11/13/2020 16:35:48 11/20/2020 [id number] deciding about u sing medicines to quit smoking Not available 11/20/2020 14:55:26 Quitting Tobacco : Care Instructions [email or web address] Not available 11/20/2020 14:55:26 learning about hepatitis C [email or web address] Not available 11/20/2020 14:55:26 Reason for Referral 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 Referral for Screening for malignant neoplasm of colon Referring Physician: Ynaelis Smith [facility], Encounter Date: 09/12/2020 Pain Management Referral for Spinal stenosis in cervical region Any questions contact [phone] Referring Physician: Yanelis Smith [facility], Encounter Date: 09/12/2020 Pain Management Referral for Spinal stenosis of lumbar region Referring Physician: Yanelis Smith [facility], Encounter Date: 10/25/2020 Urologist Referral for Histo ry of calculus of kidney Referring Physician: Catherine Sanchez [facility], Encounter Date: 10/31/2020 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 Referral for Viral hepatitis C Referring Physician: Yanelis Smith [facility], Encounter Date: 11/13/2020 Electrolysis Investigator Referral for S evere chronic obstructive pulmonary disease Referring Physician: Yanelis Smith, [facility], Encounter Date: 11/13/2020 Results Created Date Observation Date Name Description Value Unit Range Abnormal Flag Note LastModifiedBy Organization Detail LastModifiedTime 09/13/19 21 09/12/2020 elect rocar diogr am Rate & Rhythm Not Available [facility] [address], [place], [address], 09/12/2020 16:32:04 09/13/19 21 09/12/2020 elect rocar diogr am QRS Not Available [facility] [address], [place], [address], 09/12/2020 16:32:04 09/13/19 21 09/12/2020 elect rocar diogr am ID Interval Not Available [facility] [address], [place], [address], 09/12/2020 16:32:04 09/13/19 21 09/12/2020 elect rocar diogr am QRS Duration Not Available [facility] [place] [address], [place], [address], 09/12/2020 16:32:04 09/13/19 21 09/12/2020 elect rocar diogr am QT Interval Not Available [facility] [address], [place], [address], 09/12/2020 16:32:04 10/24/19 21 10/23/2020 HbA1c (hemo globi n A1c), blood HGB A1C 4.9 % <=6.5 normal Not Available [facility] (Lab) [address], [place], [address], 10/23/2020 15:18:01 10/24/19 21 10/23/2020 HbA1c (hemo globi n A1c), blood eavg glucose 94 mg/dL 70-105 normal Not Available [facility] (Lab) [facility] [address], [place], [address], 10/23/2020 15:18:01 10/24/19 21 10/23/2020 urina lysis , compl ete UA color DASHAWN abnormal Not Available [facility] (Lab) [facility], [place], [address], 10/23/2020 16:14:54 10/24/19 21 10/23/2020 urina lysis , compl ete UA appear CLOUDY clear abnormal Not Available [facility] (Lab) [facility] [address], [place], [address], 10/23/2020 16:14:54 10/24/19 21 10/23/2020 urina lysis , compl ete UA pH 5.0 5.0-9. 0 normal Not Available [facility] (Lab) [facility] [address], [place], [address], 10/23/2020 16:14:54 10/24/19 21 10/23/2020 urina lysis , compl ete UA spec grav 1.030 1.000- 1.030 normal Not Available [facility] (Lab) [facility] [address] [place], [address], 10/23/2020 16:14:54 10/24/19 21 10/23/2020 urina lysis , compl ete UA glucose NEGATI VE mg/dL negati ve normal Not Available [facility] (Lab) [facility] [address] [facility], [place], [address], 10/23/2020 16:14:54 10/24/19 21 10/23/2020 urina lysis , compl ete UA ketones NEGATI VE mg/dL negati ve normal Not Available [facility] (Lab) [facility] [address] [place], [address], 10/23/2020 16:14:54 10/24/19 21 10/23/2020 urina lysis , compl ete UA blood NEGATI VE negati ve normal Not Available [facility] (Lab) [facility] [address], [place], [address], 10/23/2020 16:14:54 10/24/19 21 10/23/2020 urina lysis , compl ete UA protein 100 mg/dL negati ve abnormal Not Available [facility] (Lab) [facility] [address], [place], [address], 10/23/2020 16:14:54 10/24/19 21 10/23/2020 urina lysis , compl ete UA bili NEGATI VE mg/dL negati ve normal Not Available [facility] (Lab) [facility] [address] [facility], [place], [address], 10/23/2020 16:14:54 10/24/19 21 10/23/2020 urina lysis , compl ete UA urobilinogen NEGATI VE mg/dL negati ve normal Not Available [facility] (Lab) [facility] [address] [facility], [place], [address], 10/23/2020 16:14:54 10/24/19 21 10/23/2020 urina lysis , compl ete UA nitrite NEGATI VE negati ve normal Not Available [facility] (Lab) [facility] [address] [facility], [place], [address], 10/23/2020 16:14:54 10/24/19 21 10/23/2020 urina lysis , compl ete UA leuk est 3+ negati ve abnormal Not Available [facility] (Lab) [facility] [address] [facility], [place], [address], 10/23/2020 16:14:54 10/24/19 21 10/23/2020 urina lysis , compl ete UA WBC 28 /hpf 0-10 high Not Available [facility] (Lab) [facility] [place], [address], 10/23/2020 16:14:54 10/24/19 21 10/23/2020 urina lysis , compl ete UA RBC 0 /hpf 0-10 normal Not Available [facility] (Lab) [facility] [address] [facility], [place], [address], 10/23/2020 16:14:54 10/24/19 21 10/23/2020 urina lysis , compl ete UA bacteria 1+ /hpf none seen abnormal Not Available [facility] (Lab) [facility] [address] [facility], [place], [address], 10/23/2020 16:14:54 10/24/19 21 10/23/2020 urina lysis , compl ete UA squam epithelial 23 /hpf 0-4 high Not Available [facility] (Lab) [facility] [address] [facility], [place], [address], 10/23/2020 16:14:54 10/24/19 21 10/23/2020 urina lysis , compl ete UA mucous 2+ /lpf none seen abnormal Not Available [facility] (Lab) [facility] [address] [facility], [place], [address], 10/23/2020 16:14:54 10/24/19 21 10/23/2020 urina lysis , compl ete UA hyal cast 76 /lpf Not Available [facility] (Lab) [facility] [address], [address], 10/23/2020 16:14:54 10/24/19 21 10/23/2020 vitam in D, 25-hy droxy , total , serum vitamin D 25 oh 16.7 NG/mL Vitam in D Total Inter preta tive Data Defic iency <20.0 ng/mL Insuf ficie ncy 20.0- 29.9 ng/mL Suffi cienc y 30.0- 100.0 ng/mL Toxic ity >100. 0 ng/mL Not Available [facility] (Lab) [facility] [address] [place] [address], [address], 10/23/2020 16:29:47 10/24/19 21 10/23/2020 CMP, serum or plasm a glucose lvl 93 mg/dL 70-99 normal Fasti ng Gluco se Inter preta tions Carolynn l 70 - 99 Impai red Fasti ng Gluco se 100 - 125 Abnor mal >=126 Not Available [facility] (Lab) [facility] [address] [place] [address], [address], 10/23/2020 16:31:40 10/24/19 21 10/23/2020 CMP, serum or plasm a BUN 7 mg/dL 10-20 low Not Available [facility] (Lab) [facility] [address] [place] [address], [address], 10/23/2020 16:31:40 10/24/19 21 10/23/2020 CMP, serum or plasm a creatinine lvl 0.77 mg/dL 0.57-1 .11 normal Not Available [facility] (Lab) [facility] [address] [place] [address], [address], 10/23/2020 16:31:40 10/24/19 21 10/23/2020 CMP, serum or plasm a calcium lvl 9.8 mg/dL 8.4-10 .8 normal Not Available [facility] (Lab) [facility] [address] [place] [address], [address], 10/23/2020 16:31:40 10/24/19 21 10/23/2020 CMP, serum or plasm a sodium lvl 142 mmol/ L 136-14 5 normal Not Available [facility] (Lab) [facility] [address] [place] [address], [address], 10/23/2020 16:31:40 10/24/19 21 10/23/2020 CMP, serum or plasm a potassium lvl 4.0 mmol/ L 3.5-5. 1 normal Not Available [facility] (Lab) [facility] [address] [place] [address], [address], 10/23/2020 16:31:40 10/24/19 21 10/23/2020 CMP, serum or plasm a chloride 104 mmol/ L 98-107 normal Not Available [facility] (Lab) [facility] [address] [place] [address], [address], 10/23/2020 16:31:40 10/24/19 21 10/23/2020 CMP, serum or plasm a CO2 26 mmol/ L 20-30 normal Not Available [facility] (Lab) [facility] [address] [place] [address], [address], 10/23/2020 16:31:40 10/24/19 21 10/23/2020 CMP, serum or plasm a agap 12.0 mmol/ L Not Available [facility] (Lab) [facility] [address] [place] [address], [address], 10/23/2020 16:31:40 10/24/19 21 10/23/2020 CMP, serum or plasm a alk phos 90 intl_ units /L 40-150 normal Not Available [facility] (Lab) [facility] [address] [place] [address], [address], 10/23/2020 16:31:40 10/24/19 21 10/23/2020 CMP, serum or plasm a bili total 0.8 mg/dL 0.2-1. 2 normal Not Available [facility] (Lab) [facility] [address] [place] [address], [address], 10/23/2020 16:31:40 10/24/19 21 10/23/2020 CMP, serum or plasm a albumin lvl 3.5 gm/dL 3.5-5. 0 normal Not Available [facility] (Lab) [address], [place], [address], 10/23/2020 16:31:40 10/24/19 21 10/23/2020 CMP, serum or plasm a total protein 7.2 gm/dL 6.4-8. 3 normal Not Available [facility] (Lab) [facility] [address], [place], [address], 10/23/2020 16:31:40 10/24/19 21 10/23/2020 CMP, serum or plasm a ALT 21 intl_ units /L 11-55 normal Not Available [facility] (Lab) [facility] [address] [facility], [place], [address], 10/23/2020 16:31:40 10/24/19 21 10/23/2020 CMP, serum or plasm a AST 28 intl_ units /L 5-34 normal Not Available [facility] (Lab) [facility] [address] [facility], [place], [address], 10/23/2020 16:31:40 10/24/19 21 10/23/2020 CMP, serum or plasm a BUN/creat ratio 9 7-20 normal Not Available [facility] (Lab) [facility] [address] [place], [address], 10/23/2020 16:31:40 10/24/19 21 10/23/2020 CMP, serum or plasm a osmolality 281 mOsm/ kg 275-30 0 normal Not Available [facility] (Lab) [facility] [address] [place], [address], 10/23/2020 16:31:40 10/24/19 21 10/23/2020 CMP, serum or plasm a Ag ratio 0.9 1.1-1. 8 low Not Available [facility] (Lab) [facility] [address] [place], [address], 10/23/2020 16:31:40 10/24/19 21 10/23/2020 GFR, estim ated (eGFR ), serum eGFR non-aa 77 mL/mi n/1.7 3m2 Not Available [facility] (Lab) [address] [place] [address], [address], 10/23/2020 16:31:41 10/24/19 21 10/23/2020 GFR, estim ated (eGFR ), serum eGFR aa 93 mL/mi n/1.7 3m2 Stage s of Renal Failu re Stage I >90 Stage II 60-89 Stage III 30-59 Stage IV 15-29 Stage V <15 Stage Va- ESRD/ Dialy sis The stagi ng syste m for Kidne y Disea se canno t be appli ed for Stage I or Stage II. This calcu latio n for GFR has only been valid ated for GFR 's <60. This GFR calcu latio n is not adjus khadra for extre me body surfa ce area. Nor has it been valid ated for child airam less than 18 years , pregn ant women , or ethni c group s other than Jina deanne and Afric an Ameri can. Not Available [facility] (Lab) [address] [place] [address], [address], 10/23/2020 16:31:41 10/24/19 21 10/23/2020 hepat itis C virus Ab, serum hep C Ab REACTI VE nonrea ctive abnormal Not Available [facility] (Lab) [address] [place] [address], [place], [address], 10/23/2020 16:32:13 10/24/19 21 10/23/2020 shh - TSH W refle x FT4 TSH 1.695 mciu/ mL 0.350- 4.940 normal Not Available [facility] (Lab) [address], [place], [address], 10/23/2020 16:34:24 10/24/19 21 10/23/2020 diffe renti al panel , blood neutrophils 56.1 % 40.0-7 4.0 normal Not Available [facility] (Lab) [facility] [address] [place], [address], 10/23/2020 16:37:57 10/24/19 21 10/23/2020 diffe renti al panel , blood lymphocytes 29.6 % 19.0-4 8.0 normal Not Available [facility] (Lab) [facility] [address], [address], 10/23/2020 16:37:57 10/24/19 21 10/23/2020 diffe renti al panel , blood monocytes 11.1 % 0.0-12 .0 normal Not Available [facility] (Lab) [facility] [address] [place] [address], [address], 10/23/2020 16:37:57 10/24/19 21 10/23/2020 diffe renti al panel , blood eosinophils 2.5 % 0.0-7. 0 normal Not Available [facility] (Lab) [facility] [address], [address], 10/23/2020 16:37:57 10/24/19 21 10/23/2020 diffe renti al panel , blood basophils 0.7 % 0.0-3. 0 normal Not Available [facility] (Lab) [facility] [address] [place] [address], [address], 10/23/2020 16:37:57 10/24/19 21 10/23/2020 diffe renti al panel , blood neutro absolute 4.90 K/uL 1.60-8 .50 normal Not Available [facility] (Lab) [facility] [address] [place] [address], [address], 10/23/2020 16:37:57 10/24/19 21 10/23/2020 diffe renti al panel , blood lymph absolute 2.60 K/uL 0.50-4 .80 normal Not Available [facility] (Lab) [facility] [address] [place] [address], [address], 10/23/2020 16:37:57 10/24/19 21 10/23/2020 scott baez panel , blood mono absolute 1.00 K/uL 0.00-0 .80 high Not Available [facility] (Lab) [facility] [address], [place], [address], 10/23/2020 16:37:57 10/24/19 21 10/23/2020 diffluciano baez panel , blood eos absolute 0.20 K/uL 0.00-0 .70 normal Not Available [facility] (Lab) [facility] [address] [place], [address], 10/23/2020 16:37:57 10/24/19 21 10/23/2020 diffluciano baez panel , blood baso absolute 0.10 K/uL 0.00-0 .10 normal Not Available [facility] (Lab) [facility] [address] [facility], [place], [address], 10/23/2020 16:37:57 10/24/19 21 10/23/2020 CBC w/ auto diff WBC 8.7 K/uL 4.0-11 .0 normal Not Available [facility] (Lab) [facility] [address] [place], [address], 10/23/2020 16:38:00 10/24/19 21 10/23/2020 CBC w/ auto diff RBC 4.61 M/uL 3.80-5 .20 normal Not Available [facility] (Lab) [facility] [address] [place], [address], 10/23/2020 16:38:00 10/24/19 21 10/23/2020 CBC w/ auto diff HGB 15.2 g/dL 12.0-1 5.4 normal Not Available [facility] (Lab) [facility] [address] [place], [address], 10/23/2020 16:38:00 10/24/19 21 10/23/2020 CBC w/ auto diff HCT 44.5 % 35.0-4 5.0 normal Not Available [facility] (Lab) [facility] [address] [place], [address], 10/23/2020 16:38:00 10/24/19 21 10/23/2020 CBC w/ auto diff MCV 96.5 fL 81.0-9 8.0 normal Not Available [facility] (Lab) [facility] [address], [place], [address], 10/23/2020 16:38:00 10/24/19 21 10/23/2020 CBC w/ auto diff MCH 33.0 pg 27.0-3 3.0 normal Not Available [facility] (Lab) [facility] [address] [place], [address], 10/23/2020 16:38:00 10/24/19 21 10/23/2020 CBC w/ auto diff MCHC 34.1 g/dL 32.0-3 7.0 normal Not Available [facility] (Lab) [facility] [address] [place], [address], 10/23/2020 16:38:00 10/24/19 21 10/23/2020 CBC w/ auto diff RDW 14.0 % 11.5-1 4.5 normal Not Available [facility] (Lab) [facility] [address] [place], [address], 10/23/2020 16:38:00 10/24/19 21 10/23/2020 CBC w/ auto diff MPV 9.0 fL 6.0-11 .1 normal Not Available [facility] (Lab) [facility] [address] [place], [address], 10/23/2020 16:38:00 10/24/19 21 10/23/2020 CBC w/ auto diff platelet 264 K/uL 150-40 0 normal Not Available [facility] (Lab) [address] [facility], [place], [address], 10/23/2020 16:38:00 10/24/19 21 10/23/2020 CBC w/ auto diff instr WBC 8.7 Not Available [facility] (Lab) [address] [facility], [place], [address], 10/23/2020 16:38:00 10/24/19 21 10/23/2020 lipid panel , serum chol 181 mg/dL 7-200 normal Deysi stero l >18yo Ha able <200 mg/dL Borde rline High 200-2 39 mg/dL High >=240 mg/dL Deysi stero l <19yo Ha able <170 mg/dL Borde rline High 170-1 99 mg/dL High >=200 mg/dL Not Available [facility] (Lab) [facility] [facility], [place], [address], 10/23/2020 16:47:53 10/24/19 21 10/23/2020 lipid panel , serum HDL-C 99 mg/dL Major risk facto r for heart disea se <40 mg/dL Negat shree risk facto r for heart disea se >= 60 mg/dL Not Available [facility] (Lab) [facility] [address], [place], [address], 10/23/2020 16:47:53 10/24/19 21 10/23/2020 lipid panel , serum chol/HDL 2 Ha able <4.5 Mallory <3.5 Not Available [facility] (Lab) [address] [facility], [place], [address], 10/23/2020 16:47:53 10/24/19 21 10/23/2020 lipid panel , serum trig 171 mg/dL 7-150 high Not Available [facility] (Lab) [address] [place], [address], 10/23/2020 16:47:53 10/24/19 21 10/23/2020 lipid panel , serum LDL-C calc 48 mg/dL <=100 normal The equat ion being used in this calcu latio n is LDL = (Chol - HDL) - (Trig / 5) Resul t added by rule GL_LD L_CAL C. Calcu lated LDL Deysi stero l Refer ence Range s Ha able <130 mg/dL Mallory <100 mg/dL Not Available [facility] (Lab) [address], [place], [address], 10/23/2020 16:47:53 10/24/19 21 10/23/2020 lipid panel , serum non-HDL cholesterol 82 mg/dL Ha able <160 mg/dL Mallory <130 mg/dL Not Available [facility] (Lab) [address], [place], [address], 10/23/2020 16:47:53 10/24/19 21 10/23/2020 lipid panel , serum VLDL cholesterol 34 mg/dL 1-40 normal Not Available [facility] (Lab) [address], [place], [address], 10/23/2020 16:47:53 10/24/19 21 10/25/2020 cultu re, urine urine culture [address] [address] Patie nt: JACKIE CELESTIN 06 Admit : 2020 [id number] 1 Disch : 2020 /A ge/ 1959 60 years Femal e Admit Oly boone MD, Yanelis Christine Sex: Locat ion: [facility] LXR Copy To: Bronson Ridley d: c=Cor recte d, f=Res ult Comme nt, *=Per formi ng Lab, S=Irma cepti ble, I=Int ermed iate, R=Res istan t, N/A = Not Appli cable Proce dure: Urine Cultu re Recei karina Date/ Time: 2020 16:05 EDT Sourc e: Urine , Clean Catch Acces newton: 30-21 -117- [id number] Colle cted Date/ Time: 2020 14:42 CDT Body Site: Start Date/ Time: 2020 15:08 CDT Free Text Sourc e: Order ing Physi clarisa: Barak gotti MD, Yanelis arellano S FI NAL REPOR TS Final Repor t [] Verif ied Date/ Time: 2020 03:55 CDT Mixed carlos (mult iple speci es prese nt) sugge sting proba ble conta minat ion upon colle ction . Recol lect if infec tion is clini fritz suspe cted. [place] [id number] Print Date/ 2020 04:55 ID: Time: EDT Not Available [facility] (Lab) [facility] [address] [place], [address], 10/25/2020 04:55:51 10/24/1910/27/2020 alpha -1-an titry psin (aat) pheno type, serum a1a 173 mg/dL 90-200 To conve rt to umol/ L, multi ply mg/dL by 0.185 Not Available [facility] (Lab) [address], [place], [address], 10/27/2020 20:23:28 10/24/1910/27/2020 alpha -1-an titry psin (aat) pheno type, serum a1a pheno M1M1 The patie nt appea rs to have a carolynn l pheno type. All M allel es (incl uding subty pes M1, M2, and M3) produ ce carolynn l serum david ntrat ions of alpha -1-pr oteas e inhib itor and are not assoc iated with clini atul disea se. Cauti on in inter preta tion is advis ed if the patie nt has been trans fused withi n the previ ous 21 days. Perfo rmed By: [facility] [address] [place] [address] Labor atory Direc tor: Rhonda wolf MD Not Available [facility] (Lab) [facility] [facility], [place], [address], 10/27/2020 20:23:28 10/27/19 21 10/26/2020 extra red urine extra urine in lab In Lab Resul t creat ed by GL_CO MPLET E_EXT RA Not Available [facility] (Lab) [facility], [place], [address], 10/26/2020 18:30:05 10/27/19 21 10/26/2020 PTH (para thyro id hormo ne), intac t, serum or plasm a PTH 89.3 pg/mL 14.0-7 2.0 high Not Available [facility] (Lab) [facility], [place], [address], 10/26/2020 18:51:25 10/27/19 21 10/26/2020 shh - hepat itis A IgM hep A IgM Nonrea ctive nonrea ctive normal Not Available [facility] (Lab) [facility], [place], [address], 10/26/2020 19:07:13 10/27/19 21 10/26/2020 HBsAg (hepa titis B surfa ce Ag), serum hep BS Ag Nonrea ctive nonrea ctive normal Not Available [facility] (Lab) [facility] [address], [place], [address], 10/26/2020 19:07:14 10/27/19 21 10/26/2020 HIV 1+O+2 Ab, QN, serum HIV Ag, Ab combo screen Nonrea ctive nonrea ctive normal Not Available [facility] (Lab) [facility] [address], [place], [address], 10/26/2020 19:07:15 10/27/19 21 10/26/2020 urina lysis , compl ete UA color Yellow normal Not Available [facility] (Lab) [facility] [address], [place], [address], 10/26/2020 19:19:53 10/27/19 21 10/26/2020 urina lysis , compl ete UA appear Cloudy clear abnormal Not Available [facility] (Lab) [facility] [address] [facility], [place], [address], 10/26/2020 19:19:53 10/27/19 21 10/26/2020 urina lysis , compl ete UA pH 5.0 5.0-9. 0 normal Not Available [facility] (Lab) [facility] [address], [place], [address], 10/26/2020 19:19:53 10/27/19 21 10/26/2020 urina lysis , compl ete UA spec grav 1.021 1.000- 1.030 normal Not Available [facility] (Lab) [facility] [address], [place], [address], 10/26/2020 19:19:53 10/27/19 21 10/26/2020 urina lysis , compl ete UA glucose Negati ve mg/dL negati ve normal Not Available [facility] (Lab) [facility] [address], [place], [address], 10/26/2020 19:19:53 10/27/19 21 10/26/2020 urina lysis , compl ete UA ketones Negati ve mg/dL negati ve normal Not Available [facility] (Lab) [address], [place], [address], 10/26/2020 19:19:53 10/27/19 21 10/26/2020 urina lysis , compl ete UA blood 3+ negati ve abnormal Not Available [facility] (Lab) [address], [place], [address], 10/26/2020 19:19:53 10/27/19 21 10/26/2020 urina lysis , compl ete UA protein 30 mg/dL negati ve abnormal Not Available [facility] (Lab) [facility], [place], [address], 10/26/2020 19:19:53 10/27/19 21 10/26/2020 urina lysis , compl ete UA bili Negati ve mg/dL negati ve normal Not Available [facility] (Lab) [facility], [place], [address], 10/26/2020 19:19:53 10/27/19 21 10/26/2020 urina lysis , compl ete UA urobilinogen Negati ve mg/dL negati ve normal Not Available [facility] (Lab) [facility] [address], [place], [address], 10/26/2020 19:19:53 10/27/19 21 10/26/2020 urina lysis , compl ete UA nitrite Negati ve negati ve normal Not Available [facility] (Lab) [facility], [place], [address], 10/26/2020 19:19:53 10/27/19 21 10/26/2020 urina lysis , compl ete UA leuk est 3+ negati ve abnormal Not Available [facility] (Lab) [facility] [address], [place], [address], 10/26/2020 19:19:53 10/27/19 21 10/26/2020 urina lysis , compl ete UA WBC 23 /hpf 0-10 high Not Available [facility] (Lab) [facility] [address] [facility], [place], [address], 10/26/2020 19:19:53 10/27/19 21 10/26/2020 urina lysis , compl ete UA RBC >100 /hpf 0-10 high Not Available [facility] (Lab) [facility] [address] [facility], [place], [address], 10/26/2020 19:19:53 10/27/19 21 10/26/2020 urina lysis , compl ete UA bacteria Trace /hpf none seen normal Not Available [facility] (Lab) [facility] [address], [address], 10/26/2020 19:19:53 10/27/19 21 10/26/2020 urina lysis , compl ete UA squam epithelial 6 /hpf 0-4 high Not Available [facility] (Lab) [facility] [address], [place], [address], 10/26/2020 19:19:53 10/27/19 21 10/26/2020 urina lysis , compl ete UA mucous Trace /lpf none seen normal Not Available [facility] (Lab) [facility] [address] [facility], [place], [address], 10/26/2020 19:19:53 10/27/19 21 10/26/2020 urina lysis , compl ete UA hyal cast 5 /lpf Not Available [facility] (Lab) [facility] [address], [place], [address], 10/26/2020 19:19:53 10/27/19 21 10/26/2020 carci noemb ryoni c Ag, quant , serum or plasm a cea 14.2 NG/mL <=5.0 high CEA Refer ence Range s 94.6% of Nonsm okers <5.0 ng/mL 92.4% of Smoke rs <5.0 ng/mL Not Available [facility] (Lab) [facility] [facility], [place], [address], 10/26/2020 19:26:31 10/27/19 21 10/26/2020 afp (alph a-fet oprot ein), serum AFP tumor marker 4.4 NG/mL 0.9-8. 8 normal Range for newbo rns is not avail able, but david ntrat ions over 100,0 00 ng/ml have been repor khadra in carolynn l newPhilrealestates rns. Value s rapid ly decli ne in the first 6 month s of life. (ref. - [facility]) Not Available [facility] (Lab) [facility] [address] [facility], [place], [address], 10/26/2020 19:26:32 10/27/19 21 10/26/2020 calci um, ioniz ed, blood calcium ionized (bld gas) 5.36 mg/dL 4.36-5 .20 high Not Available [facility] (Lab) [facility] [address], [place], [address], 10/26/2020 19:54:00 10/27/19 21 10/27/2020 cultu re, urine urine culture [address] [address] Patie nt: GHISLAINE PATELJACKIE Rosita 06 Admit : 2020 [id number] 2 Disch : 2020 /A ge/ 1959 60 years Femal e Admit Oly boone MD, Yanelis arellano S Sex: Locat ion: [facility] LXR Copy To: Bronson Ridley d: c=Cor recte d, f=Res ult Comme nt, *=Per irving ng Lab, S=Irma cepti ble, I=Int ermed iate, R=Res istan t, N/A = Not Appli cable Proce dure: Urine Cultu re Recei karina Date/ Time: 2020 20:56 EDT Sourc e: Urine , Clean Catch Acces newton: 30-21 -120- [id number] Colle cted Date/ Time: 2020 11:17 CDT Body Site: Start Date/ Time: 2020 19:58 CDT Free Text Sourc e: Order ing Physi clarisa: Barak gotti MD, Yanelis arellano S FI NAL REPOR TS Final Repor t [] Verif ied Date/ Time: 021 20:06 EDT Mixed carlos , sugge sting proba ble conta minat ion at colle ction [place] [id number] Print Date/ 021 21:11 EDT ID: Time: Not Available [facility] (Lab) [address] [facility], [place], [address], 10/27/2020 21:11:53 10/27/19 21 10/30/2020 hepat itis C RNA, quant , PCR, serum hepc RNA PCR qnt [id number] IU/mL <=15 high Perfo rmed using Juju Ampli prep- TaqMa n 2.0 PCR Not Available [facility] (Lab) [address], [place], [address], 10/30/2020 15:21:25 10/27/19 21 10/30/2020 alpha -1-an titry psin (aat) pheno type, serum a1a 169 mg/dL 90-200 To conve rt to umol/ L, multi ply mg/dL by 0.185 Not Available [facility] (Lab) [address], [place], [address], 10/30/2020 22:07:32 10/27/19 21 10/30/2020 alpha -1-an titry psin (aat) pheno type, serum a1a pheno M1M1 The patie nt appea rs to have a carolynn l pheno type. All M allel es (incl uding subty pes M1, M2, and M3) produ ce carolynn l serum david ntrat ions of alpha -1-pr oteas e inhib itor and are not assoc iated with clini atul disea se. Cauti on in inter preta tion is advis ed if the patie nt has been trans fused withi n the previ ous 21 days. Perfo rmed By: [facility] [address] [place] [address] Labor atory Direc tor: Rhonda wolf MD Not Available [facility] (Lab) [address], [place], [address], 10/30/2020 22:07:32 10/27/19 21 11/01/2020 hepat itis C genot ype, serum or plasm a HCV genotyping by sequencing 1A OR 1B Canno t be furth er subty ped into Type 1a or Type 1b due to high conse rvati on of the 5' untra nslat ed regio n of the HCV genom e. In addit ion, Type 6 virus may be miscl assif ied as Type 1 in some cases . The Hepat itis C Virus High- Resol ution Genot ype by Seque ncing test ([facility] test code 79822 98) provi kallie a highe r level of subty pe resol ution . INTER PRETI VE INFOR MATIO N: Hepat itis C Genot yping Hepat itis C Viral RNA is teste d using rever se trans cript ion polym erase chain react ion (RT-P CR) to ampli fy a speci fic porti on of the 5' untra nslat ed regio n (5' UTR) of the viral genom e. The ampli fied nucle ic acid is seque nced bi-di recti onall y using dye-t ermin ator chemi stry (SUSI) . Seque ncing data is bassem red to a datab ase of antonio cteri zed seque nces. [place] velvet of hepat itis C virus are group ed into six major genot ypes (1-6) . These genot ypes are subty ped accor ding to seque nce antonio cteri stics . Due to high conse rvati on of the 5' un-tr ansla khadra regio n of the HCV genom e, this test has limit ation s in diffe renti ating subty pe 1a from 1b. There fore, these subty pes will be repor khadra as 1a or 1b. In rare insta nces, Type 6 virus may be miscl assif ied as Type 1. This test was devel oped and its perfo rmanc e antonio cteri stics deter mined by [employer] good[employer] es. It has not been clear ed or appro karina by the [place] Food and Drug Admin istra tion. This test was perfo rmed in a CLIA certi fied labor atory and is inten ded for clini atul purpo ses. Perfo rmed By: MELANIE hernández es [address] [place] [address] [employer] Direc tor: Rhonda wolf MD Not Available [facility] (Lab) [address], [place], [address], 11/01/2020 11:11:12 09/14/19 21 09/12/2020 elect saeed clemens am No observ ation record ed. [facility]_pc_perdi do [address] , [place], [address], 10/25/2020 17:38:14 10/17/19 21 10/16/2020 CT, coron catrachito calci um score 1.2.84 0.1138 37.339 [id number] 1.1618 954609 .0 Encryp khadra=sh AaTroY D8dLqb EUv6g% 2BXZwa Yqtaq0 bqfl%2 Fg9IQa 4ajBkv P9nXoQ UaueCm 3YtLRF vZlgJJ [address] [place] [address] [id number] C0Kuam D2Nb%2 BkUzsk qc0AU% 2FQ%3D swnctaker[address] [place], [place] [address] [place], [address], 10/25/2020 17:38:13 10/17/19 21 10/16/2020 CT, coron catrachito calci um score 1.2.84 0.1138 37.339 659048 1.1618 661457 .0 Encryp khadra=sh AaTroY D8dLqb EUv6g% 2BXZwa Yqtaq0 bqfl%2 Fg9IQa 4ajBkv P9nXoQ UaueCm 3YtLRF [place] [address] [id number] C0Kuam D2Nb%2 BkUzsk qc0AU% 2FQ%3D [facility] caretake[facility]in [facility] [address] [place], [address], 10/25/2020 17:38:13 10/17/19 21 10/16/2020 CT, coron catrachito calci um score 1.2.84 0.1138 37.339 995678 1.1618 842458 .0 Encryp khadra=sh AaTroY D8dLqb EUv6g% 2BXZwa Yqtaq0 bqfl%2 Fg9IQa 4ajBkv P9nXoQ UaueCm 3YtLRF vZlgJJ [address] [id number] C0Kuam D2Nb%2 BkUzsk qc0AU% 2FQ%3D [facility] [place], [place] [address] [place], [address], 10/25/2020 17:38:13 10/17/19 21 10/16/2020 CT, coron catrachito calci um score 1.2.84 0.1138 37.339 315886 1.1618 803883 .0 Encryp khadra=sh AaTroY D8dLqb EUv6g% 2BXZwa Yqtaq0 bqfl%2 Fg9IQa 4ajBkv P9nXoQ UaueCm 3YtLRF vZlgJJ J8mAnH Ztai31 [id number] C0Kuam D2Nb%2 BkUzsk qc0AU% 2FQ%3D [facility] [address] [facility] [address], [place], [address], 10/25/2020 17:38:13 10/17/19 21 10/16/2020 CT, coron catrachito calci um score CT Calciu m Mary rivas REASON FOR EXAM: ABNORM AL ELECTR OCARDI OGRAM [ECG] [EKG] ABNORM AL ELECTR OCARDI OGRAM [ECG] [EKG] CT Calciu junaid rivas PROCED URE:CO RONARY CALCIU M SCORE INDICA TIONS: SCREEN ING FOR BENITES RY ATHERO SCLERO SIS. Calciu m Score : 63.5 Percen tile Ryanne -90 Benites ry Calciu m Volume : 56.4 (mm3) FINDIN GS: Left Main score: 0 LAD score: 42.8 Left circum flex score: 20.8 RCA score: 0 OTHER OBSERV ATIONS :Techn ologis t noted suspic ious liver mass, confir med by radiol ogist. Sugges t CT of the liver should be done. BACKGR OUND: It has been establ ished that calcif icatio n of the benites ry arteri es, which can be detect ed by the scanne r used in this examin ation, is a marker for the presen ce of Athero sclero sis (scar celestin of the arteri es). If calcif icatio n of a benites ry artery is detect ed by the scanne r, this indica velvet the presen ce of athero sclero tic plaque in the blood vessel . Such calcif icatio ns often appear many years before sympto matic heart diseas e develo ps, and as such, they can repres ent an early indica tion of the presen ce of develo ping benites ry artery diseas e. If calcif icatio n is detect ed in the benites ry artery system by the imtiaz jacome, the Calciu m Score is comput ed for each of the benites ry arteri es based upon the size and densit y of the region s identi fied to contai n calciu m. While this Calciu m Score does not corres pond direct ly to narrow ing in the artery due to athero sclero sis, it does have correl ation with the severi ty of benites ry athero sclero sis presen t. The Calciu m Score is used to compar e the patien t s result with result s from people of the same gender and a simila r age from publis hed tables of Calciu m Scores . This proces s is referr ed to as Isacc Quinteroin g. The scores and isacc kearney g report ed here are intend ed to enable your physic jovita to better evalua te your risk of develo ping sympto matic benites ry artery diseas e. A full evalua tion of cardia c risk should includ e an assess ment of all conven tional risk factor s, especi ally age, and the scores and percechristina kearney gs report ed herein should be evalua khadra in this contex t. This examin ation is not to be consid ered a substi tute for evalua tion by a physic jovita and is not consid ered useful for diagno sis of sympto ms of any kind. Benites ry calciu m scorin g is intend ed to be a risk assess ment test for benites ry artery diseas e only, and the result s of this examin ation should be taken into carefu l consid eratio n by the patien t s own physic jovita or consul ting heart specia list in the contex t of other factor s such as releva nt histor y, sympto ms, physic al examin ation, and any other indica khadra invest igatio ns. The benites ry calciu m score can be combin ed with some of the tradit ional risk factor s in order to calcul ate the ten year risk of ischem ic beintes ry events using the [employer] Risk Calcul ator, which is availa ble on line at https: //www. chambers-n hlbi.o rg/MES Raffi borrego/[facility] [place] core/R iskSco re.asp x. Electr onical ly Signed By: Thierno Miguel ms, MD on 021 6:34 PM Final Dictat ed by: Thierno Miguel ms, MD Dictat ed DT/TM: 2020 6:32 pm Signed by: Myriam correa MD, Thierno crystal Signed (Elect blancamisty Signat ure): 2020 6:[address] (Radiology-[facility]) [facility] [address] [place] [address], [phone], 10/25/2020 17:38:13 10/24/19 21 10/23/2020 XR, chest , 2 view 1.2.84 0.1138 37.307 [id number] 2.1619 [id number] .0 Encryp khadra=sh AaTroY D8dLqb EUv6g% 2BXZwa Yqtaq0 bqfl%2 Fg9IQa 4ajBkv P9nXoQ UaueCm 3YtLRF vZlgJJ J8mAnH Ztai31 [id number] C0Kuam DtM7%2 BkUzsl qM0GVP Q%3D [address] [facility] [place], [address], 10/25/2020 17:38:13 10/24/19 21 10/23/2020 PFT, compl ete No observ ation record ed. [address] ([facility]iology[facility]) [facility] N [address] [place] [address], [id number], 10/25/2020 17:38:13 10/24/19 21 10/23/2020 XR, chest , 2 view EXAMIN ATION: XR Chest 2 Views CLINIC AL INDICA TION: Female , 60 years old. COPD COMPAR AGUILA: None. FINDIN GS: Normal cardia c silhou ette. Tortuo us ectati c aorta. No infilt rate, edema, pneumo thorax . Hypere xpande d lungs consis tent with some compon ent of COPD. There is a nodula r densit y in the right suprah ilar region which could reflec t pulmon catrachito vascul ature, but cannot exclud e pulmon catrachito nodule . Otherw ise, there is a subacu te rib fractu re involv ing right rib 10. IMPRES [place]: 1. 1.3 cm nodula r densit y in the right suprah ilar region for which recomm end chest CT for furthe r evalua tion. 2. COPD. No infilt rate. Subacu te right rib 10 fractu re. Electr onical ly signed by: Mark Anthony Lawton MD 021 4:41 PM CDT Workst ation: 109-00 82SBP Final Dictat ed by: Mark Anthony Lawton MD Dictat ed DT/TM: 2020 4:41 pm Signed by: Mark Anthony Lawton MD Signed (Elect wally Signtoyin [facility]): 2020 4:41 pm [email or web address] [facility] (Radiology[facility]) [address], [place], [address], 10/25/2020 17:38:12 10/24/19 21 10/23/2020 XR, chest , 2 view No observ ation record ed. [facility] [address], [place], [address], 10/25/2020 17:38:13 10/26/19 21 10/23/2020 PFT, compl ete No observ ation record ed. Not Available 10/31 14:23:11 11/08/19 21 11/07/2020 CT chest w/ abdom en w/+w/ o pelvi s w/con t 1.2.84 0.1136 19.2.5 5.3.62 210213 3.209. 575904 0275.2 57 Encryp khadra=sh AaTroY D8dLqb EUv6g% 2BXZwa Yqtaq0 bqfl%2 Fg9IQa 4ajBkv P9nXoQ UaueCm 3YtLRF vZlg [facility] Zt[facility] u3031E C0Kuam D2Nb%2 BkUzsk pssHU% 2Fk%3D [place] [address] [place], [address], 11/13/2020 15:54:15 11/08/19 21 11/07/2020 CT chest w/ abdom en w/+w/ o pelvi s w/con t 1.2.84 0.1136 19.2.5 5.3.62 683583 3.209. 596972 8377.2 57 Encryp khadra=sh AaTroY D8dLqb EUv6g% 2BXZwa Yqtaq0 bqfl%2 Fg9IQa 4ajBkv P9nXoQ UaueCm 3YtLRF [address] i0727M C0Kuam D2Nb%2 BkUzsk pssHU% 2Fk%3D [address] [place] [address] [place], [address], 11/13/2020 15:54:14 11/09/19 21 11/07/2020 CT, abdom en + pelvi s, w/wo contr ast Proced ure: CT CHEST ABDOME N PELVIS WITHOU T THEN WITH IV CONTRA ST Indica tion: HEPATO MEGALY , NOT ELSEWH ERE CLASSI FIED HEPATO MEGALY , NOT ELSEWH ERE CLASSI FIED Compar aguila: No prior films are availa ble for compar aguila. Techni que: Axial images of the chest, abdome n and pelvis were obtain ed from the domes of the diaphr agm to the symphy sis pubis with and withou t IV contra st. Arteri al phase and venous phase images were obtain ed. 100 cc of Omni 300 were admini stered intrav enousl y. Oral contra st was not given for opacif icatio n of the bowel. Findin gs: There are no suspic ious pulmon catrachito masses or nodule s. There is no focal airspa ce diseas e or pleura l effusi on. There is diffus e centri lobula r emphys ematou s change more predom inant within the lung apices . There is a calcif ied granul michelle in the right lung base and azygos esopha geal recess and along the right major fissur e. There is atelec tatic change in the left lung base with nodula r compon ents. The nodula r atelec tatic change in the left lung base latera lly measur es 6 mm. There is no eviden ce of medias tinal or hilar adenop athy. There is athero sclero tic vascul ar diseas e of the abdomi nal aorta. There is no focal aneury sm. The heart is not enlarg ed. No perica rdial effusi on is seen. The liver, spleen , pancre as, and adrena l glands are within normal limits . The gallbl adder is within normal limits The kidney s are withou t hydron ephros is. The ureter s run a nonobs tructe d course to the bladde r. There is a 4 mm left inferi or pole renal stone. Right kidney is withou t stones . The bladde r is withou t stones or wall thicke fawad. Uterus and adnexa within normal limits . The visual ized bowel is nonobs tructe d withou t inflam matory change . There is no free air or free fluid. Append ix is normal in the right lower quadra nt. There is mild degene rative disc diseas e of the thorac ic and lumbar spine with sclero sis and osteop hyte format ion. Impres newton: 1. No acute intraa bdomin al proces s. Normal liver. No focal liver mass or lesion . 2. Nonste notic left renal stones . 3. Pulmon catrachito nodule s as descri bed above the larges t measur ing 6 mm. Please 5 using Fleisc hner criter ia. FLEISC HNER SOCIET Y FOLLOW -UP CRITER IA FOR PULMON CATRACHITO NODULE S Solid nodule s Solita ry nodule size: <6 mm * low risk patien ts: no follow -up needed * high risk patien ts: option al CT at 12 months Solita ry nodule size: 6-8 mm * low risk patien ts: follow -up at 6-12 months , then consid er furthe r follow -up at 18-24 months * high risk patien ts: initia l follow -up CT at 6-12 months and then at 18-24 months if no change Solita ry nodule size: >8 mm * either low or high risk patien ts * consid er follow -up CT at 3 months , and/or CT-PET , and/or biopsy Multip le nodule s size: <6 mm * low risk patien ts: no routin e follow -up * high risk patien ts: option al CT at 12 months Multip le nodule s size: 6-8 mm * low risk patien ts: follow -up at 3-6 months , then consid er furthe r follow -up at 18-24 months * high risk patien ts: follow -up at 3-6 months , then at 18-24 months if no change Multip le nodule s size: >8 mm * low risk patien ts: follow -up at 3-6 months , then consid er furthe r follow -up at 18-24 months * high risk patien ts: follow -up at 3-6 months , then at 18-24 months if no change Note: newly detect ed indete rminat e nodule in person s 35 years of age or older * low risk patien ts: minima l or absent histor y of smokin g and or other known risk factor s * high risk patien ts: histor y of smokin g or of other known risk factor s (e.g. first degree relati ve with lung cancer , or exposu re to asbest os, radon, uraniu m) * if a nodule up to 8 mm is partly solid or is ground glass furthe r follow -up is requir ed after 24 months to exclud e possib le slow growin g adenoc arcino ma (JILLIAN) Subsol id nodule s Solita ry pure ground -glass nodule * nodule size <6mm * no CT follow -up requir ed * nodule size e6mm * follow up CT at 6-12 months , then every 2 years until 5 years Solita ry part-s olid nodule * nodule size <6mm * no CT follow -up requir ed * nodule size e6mm * follow -up CT at 3-6 months * if unchan ged, and solid compon ent remain s <6mm, then annual follow -up for 5 years Multip le subsol id nodule s * nodule size <6mm * follow -up CT at 3-6 months * consid er furthe r follow -up at 2 and 4 years if stable * nodule size e6mm * follow -up CT at 3-6 months * subseq uent manage ment based on the most suspic ious nodule (s) * Fleisc hner Societ y Recomm endati ons and this table do NOT apply to: * Patien ts who have a known cancer . * Immuno suppre ssed patien ts. * Lung cancer screen ing, which has separa te criter ia. * Intra- fissur al, perifi ssural , and subple ural pulmon catrachito nodule s. Perifi ssural lung nodule s are usuall y benign , unless suspic ious nodule morpho logy is presen t (refer ence). * Spicul ated margin s. * Displa cement of the pulmon catrachito fissur e. * Cancer histor y. * In these cases, follow -up should be consid ered. Diamet er of lung nodule is the averag e of the short and long axes, rounde d to the whole millim eter. Lung Cancer Risk Factor s: * Tobacc o use. * Family histor y of lung cancer . * Upper pulmon catrachito lobe locati on of nodule . * Presen ce of emphys krishna. * Pulmon catrachito fibros is. * Older Age. * Female gender . All CT scans at this facili ty use dose modula tion, iterat shree recons tructi on, and/or weight based dosing when approp riate to reduce radiat ion dose to as low as reason ably achiev able. Electr onical ly signed by: Benji rodriguez MD 021 9:57 AM CDT Workst ation: 109-84 7311M Final Dictat ed by: Benji Muller MD Dictat ed DT/TM: 2020 9:57 am Signed by: Benji Muller MD Signed (Elect wally Signat ure): 2020 9:57 am [facility] [address], [place], [address], 02/20/2021 09:55:09 Result Notes None recorded. Problems Name Problem SNOMED Code Status Onset Date Resolution Date Notes Provider Name and Address Organization Details Recorded Time Chronic obstructive pulmonary disease 53384525 Completed 202010/25/2020 Yanelis Smith MD [address], [place], [address], [place] [facility] 17:41:56 Asthma 771975879 Completed 202010/25/2020 Yanelis Smith MD [address], [place], [address], [place] [facility] 17:41:59 Body mass index 20-24 - normal 997472205 Active 2020 Moody Mccormick null, [place] [facility] 16:03:24 Malignant hypertensio n 19059877 Completed 202009/12/2020 Ynaelis Smith MD [address], [place], [address], [place] [facility] 16:32:26 Chronic back pain 363769711 Active 2020 Moody Mccormick null, [place] [facility] 16:03:38 Spinal stenosis of lumbar region 72924697 Active 2020 Moody Mccormick null, [place] [facility] 16:03:45 Spinal stenosis in cervical region 27963701 Active 2020 Moody Mccormick null, [place] [facility] 1 16:03:52 Allergic rhinitis 96747485 Active 2020 Moody Mccormick null, [facility] 1 16:04:01 Gastroesoph ageal reflux disease 664478192 Active 2020 Moody Mccormick null, [facility] 1 16:04:06 History of tubal ligation 679216443 Active 2020 Moody Mccormick null, [facility] 1 16:04:14 Tobacco dependence syndrome 61222234 Active 2020 Moody Mccormick null, [facility] 1 16:04:21 Osteopenia 299670218 Active 2020 Moody Mccormick null, [facility] 1 16:04:39 History of polyp of colon 000782758 Active 2020 Moody Mccormick null, [facility] 1 16:04:56 Hypertensiv e disorder 66508537 Active 2020 Yanelis Smith MD [address], [place], [address], [facility] 1 16:31:53 Spasm of back muscles 221465500 Active 2020 Yanelis Smith MD [address], [place], [address], [facility] 1 16:34:59 Posterior rhinorrhea 78980711 Active 2020 Yanelis Smith MD [address], [place], [address], [facility] 1 16:35:21 Electrocard iogram abnormal 566475083 Active 2020 Yanelis Smith MD [address], [place], [address], [facility] 1 16:53:48 At increased risk for cardiovascu lar event 236636185 Active 2020 Yanelis Smith MD [address], [place], [address], [facility] 16:53:57 Coronary arterioscle rosis 12205044 Active 2020 Yanelis Smith MD [address], [place], [address], [facility] 19:43:20 Standard chest X-ray abnormal 402497889 Active 2020 Yanelis Smith MD [address], [place], [address], [facility] 17:20:48 Hepatitis C antibody detected 014838303 Active 2020 Yanelis Smith MD [address], [place], [address], [facility] 17:21:24 Abnormal urinalysis 073596981 Active 2020 Yanelis Smith MD [address], [place], [address], [facility] 17:21:39 Vitamin D deficiency 63416496 Active 2020 Yanelis Smith MD [address], [place], [address], [facility] 17:21:56 Severe chronic obstructive pulmonary disease 626222629 Active 2020 Yanelis Smith MD [address], [place], [address], [facility] 17:40:55 Alpha-1-ant itrypsin phenotype PiMM 098203777 Active 2020 Yanelis Smith MD [address], [place], [address], [facility] 07:03:54 Pulmonary emphysema 45422398 Active 2020 Yanelis Smith MD [address], [place], [address], [facility] 15:52:13 Solitary nodule of lung 386598712 Active 2020 Yanelis Smith MD [address], [place], [address], [facility] 15:52:54 Chronic atelectasis 622064960 Active 2020 Yanelis Smith MD [address], [place], [address], [facility] 15:53:17 Calculus in renal pelvis 709439720 Active [address], [place], [address], [facility] 15:53:46 Viral hepatitis C 25519712 Active 2020 Yanelis Smith MD [address], [place], [address], [facility] 15:54:35 Thoracic spondylosis 318900986 Active 2020 Yanelis Smith MD [address], [place], [address], [facility] 15:56:00 Hypoxemia 232067948 Active 2020 Yanelis Smith MD [address], [place], [address], [facility] 15:56:59 Chronic hypoxemic respiratory failure 291492248 Active 2020 MD [address], [place], [address], [facility] 16:36:35 Problem Notes None recorded. Procedures Surgical History Date Name Laterality Status Provider Name and Address Organization Details Recorded Time 0 Date of Last Mammogram completed [facility] 09/12/2020 16:04:28 9 Date of Last Pap Smear completed [facility] 09/12/2020 16:05:07 0 Date of Last Colonoscopy completed [facility] 09/12/2020 16:04:50 8 Tubal Ligation completed [facility] 09/12/2020 16:06:46 5 repair of meniscus completed [facility] 09/12/2020 16:06:38 Imaging Results Imaging Date Name Status LastModified by Organization Details LastModified Time 09/12/2020 electrocardiogram completed [address] [address] [place], [address], 10/25/2020 17:38:14 10/16/2020 CT, coronary calcium score completed [place] [address] [place], [address], 10/25/2020 17:38:13 10/16/2020 CT, coronary calcium score completed [place] [address] [place], [address], 10/25/2020 17:38:13 10/16/2020 CT, coronary calcium score completed [place] [address] [place], [address], 10/25/2020 17:38:13 10/16/2020 CT, coronary calcium score completed [place] [address] [place], [address], 10/25/2020 17:38:13 10/16/2020 CT, coronary calcium score completed [facility] [place] [address] ([facility]) [address], [place], [address], 10/25/2020 17:38:13 10/23/2020 XR, [facility], [facility] [place] [address], [place], [address], 10/25/2020 17:38:13 10/23/2020 PFT, complete completed [facility] ([facility]) [address], [place], [address], 10/25/2020 17:38:13 10/23/2020 XR, chest, 2 view completed [facility] [place] [address] ([facility]) [address], [place], [address], 10/25/2020 17:38:12 10/23/2020 XR, chest, 2 view completed [place] [address] [facility] [address] , [place], [address], 10/25/2020 17:38:13 10/23/2020 PFT, complete completed [facility] Information not available 10/31/2020 14:23:11 11/07/2020 CT chest w/ abdomen w/+w/o pelvis w/cont completed [address], [place], [address], 11/13/2020 15:54:15 11/07/2020 CT chest w/ abdomen w/+w/o pelvis w/cont [facility] [place] [address], [place], [address], 11/13/2020 15:54:14 11/07/2020 CT, abdomen + pelvis, w/wo contrast completed [facility] [facility] [address], [place], [address], 02/20/2021 09:55:09 Procedure Notes None recorded. Medical Equipment None Reported. Allergies Allergen ID Allergen Name Allergen Category Reaction Reaction Severity Criticality Documentation Date Start Date Code Code System Note Provider Name and Address Organization Details Recorded Time 923314 Chantix medicatio n other severe Not available 09/12/2020 87134 0 RxNorm Psych osis Yanelis Smith MD [address], [place], [address], [place] - [facility] 16:57:32 776560 azithromy darling medicatio n anaphylax is severe Not available 09/14/2020 24844 RxNorm Moody Mccormick null, [facility] 1 11:06:12 798077 Augmentin medicatio n hives severe Not available 09/14/2020 69491 2 RxNorm Moody Mccormick null, [facility] 1 11:06:27 Medications Name Sig Start Date Stop Date Status Note LastModified by Organization Details LastModified Time losartan 50 mg tablet TAKE ONE TABLET BY MOUTH ONE TIME DAILY FOR HIGH BLOOD PRESSURE active Not Available Not Available No t Available cyclobenzap rine 10 mg tablet Take 1 tablet every day by oral route as needed for 30 days. 10/31 completed Not Available Not Available Not Available nicotine 14 mg/24 hr daily transdermal patch Apply 1 patch every day by transderm al route for 7 days. 10/25 completed Not Available Not Available Not Available albuterol sulfate 2.5 mg/3 mL (0.083 %) solution for nebulizatio n Inhale 3 mL every 4-6 hours by nebulizat ion route as needed. active Not Available Not Available No t Available ibuprofen 800 mg tablet 09/12 completed Not Available Not Available Not Available Pratik Low Dose Aspirin 81 mg tablet,tierney yed release Take 1 tablet every day by oral route in the evening. 2020 active Not Available Not Available Not Avai lable amlodipine 5 mg tablet TAKE ONE TABLET BY MOUTH ONE TIME DAILY IN THE MORNING 2020 active Not Available Not Available Not Avai lable hydrocodone 10 mg-acetamin ophen 325 mg tablet TAKE ONE TABLET BY MOUTH EVERY 8 HOURS NEEDED FOR 7 DAYS active Not Available Not Available No t Available phenazopyri dine 100 mg tablet TAKE ONE TABLET BY MOUTH THREE TIMES A DAY AFTER MEALS FOR 2 DAYS 09/12 completed Not Available Not Available Not Available hydrocodone 7.5 mg-acetamin ophen 325 mg tablet 09/12 completed Not Available Not Available Not Available prednisone 50 mg tablet 09/12 completed Not Available Not Available Not Available nicotine 21 mg/24 hr daily transdermal patch Apply 1 patch every day by transderm al route for 7 days. 10/25 completed Not Available Not Available Not Available omeprazole 20 mg capsule,del ayed release Take 1 capsule every day by oral route as directed for 90 days. 2020 active Not Available Not Available Not Avai lable montelukast 10 mg tablet TAKE ONE TABLET BY MOUTH ONE TIME DAILY 2020 active Not Available Not Available Not Avai lable ergocalcife rol (vitamin D2) 1,250 mcg (50,000 unit) capsule TAKE ONE CAPSULE BY MOUTH EVERY WEEK 2020 active Not Available Not Available Not Avai lable ibuprofen 600 mg tablet 09/12 completed Not Available Not Available Not Available ondansetron 4 mg disintegrat ing tablet 09/12 completed Not Available Not Available Not Available cefdinir 300 mg capsule TAKE ONE CAPSULE BY MOUTH TWICE A DAY FOR 10 DAYS 09/12 completed Not Available Not Available Not Available fluticasone propionate 50 mcg/actuati on nasal spray,suspe nsion 09/12 completed Not Available Not Available Not Available nicotine 7 mg/24 hr daily transdermal patch Apply 1 patch every day by transderm al route for 28 days. 2020 active Not Available Not Available Not Avai lable Mucinex 600 mg tablet, extended release Take 1 tablet every day by oral route as directed for 20 days. 10/31 completed Not Available Not Available Not Available Spiriva with HandiHaler 18 mcg and inhalation capsules INHALE THE CONTENTS OF ONE CAPSULE WITH INHALATIO N DEVICE VIA HANDIHALE R ONE TIME DAILY 10/25 completed Not Available Not Available Not Available nitrofurant oin monohydrate /macrocryst als 100 mg capsule TAKE ONE CAPSULE BY MOUTH EVERY 12 HOURS WITH FOOD FOR 5 DAYS 09/12 completed Not Available Not Available Not Available AeroChamber Z-Stat Plus-Flow Signal 09/12 completed Not Available Not Available Not Available ProAir HFA 90 mcg/actuati on aerosol inhaler Inhale 2 inhalatio ns every 4 hours by inhalatio n route as needed. active Not Available Not Available No t Available Symbicort 160 mcg-4.5 mcg/actuati on HFA aerosol inhaler Inhale 1 inhalatio n by inhalatio n route as needed for 60 days. 10/25 completed Not Available Not Available Not Available Trelegy Ellipta 100 mcg-62.5 mcg-25 mcg powder for inhalation INHALE ONE PUFF BY MOUTH EVERY MORNING active Not Available Not Available No t Available Daliresp 250 mcg tablet TAKE ONE TABLET BY MOUTH ONE TIME DAILY 2020 active Not Available Not Available Not Avai lable Vitals Date Recorded Body height Body mass index (BMI) Body weight Heart rate Respiratory rate Body temperature Oxygen saturation Oxygen saturation in Arterial blood by Pulse oximetry Pain severity - 0-10 verbal numeric rating [Score] - Reported Systolic blood pressure Diastolic blood pressure Provider Name and Address Organization Details Last Updated DateTime 170.18 cm 20.8 kg/m2 25697.7 9 g 70 /min 16 /min 97.5 [degF] 99 % 99 % 7 162 mm[Hg] 105 mm[Hg] Moody Mccormick [place] - [facility] 16:01:09 Date Recorded Body height Body mass index (BMI) Body weight Heart rate Respiratory rate Body temperature Oxygen saturation Oxygen saturation in Arterial blood by Pulse oximetry Pain severity - 0-10 verbal numeric rating [Score] - Reported Systolic blood pressure Diastolic blood pressure Provider Name and Address Organization Details Last Updated DateTime 170.18 cm 20.5 kg/m2 01204.1 6 g 89 /min 18 /min 98.1 [degF] 94 % 94 % 8 137 mm[Hg] 93 mm[Hg] Leann Pope [place] [facility] 16:44:20 Date Recorded Body height Provider Name an d Address Organization Details Last Updated DateTime 10/31/2020 170.18 cm Erwin Camara [facility] 10/31/2020 12:24:01 Date Recorded Body height Body mass index (BMI) Body weight Heart rate Respiratory rate Body temperature Oxygen saturation Oxygen saturation in Arterial blood by Pulse oximetry Pain severity - 0-10 verbal numeric rating [Score] - Reported Systolic blood pressure Diastolic blood pressure Provider Name and Address Organization Details Last Updated DateTime 1 170.18 cm 20.2 kg/m2 42642.4 2 g 106 /min 18 /min 97.8 [degF] 91 % 91 % 7 116 mm[Hg] 68 mm[Hg] Dalila steen [facility] 15:35:50 Date Recorded Oxygen saturation Oxygen saturation in Arterial blood by Pulse oximetry Oxygen saturation Oxygen saturation in Arterial blood by Pulse oximetry Oxygen saturation Oxygen saturation in Arterial blood by Pulse oximetry Inhaled oxygen flow rate Provider Name and Address Organization Details Last Updated DateTime 1 94 % 94 % 84 % 84 % 90 % 90 % 4 L/min Yanelis Smith MD [address] [place] [address], [address] [place] [address] 11:35:47 Date Recorded Body height Body mass index (BMI) Body weight Heart rate Respiratory rate Body temperature Oxygen saturation Oxygen saturation in Arterial blood by Pulse oximetry Systolic blood pressure Diastolic blood pressure Provider Name and Address Organization Details Last Updated DateTime 1 170.18 cm 20.2 kg/m2 79454.4 2 g 121 /min 16 /min 97.7 [degF] 88 % 88 % 122 mm[Hg] 71 mm[Hg] Janet Vela [facility] 14:36:30 Social History Question Answer Notes LastModified by Organizat ion Details LastModified Time Tobacco Smoking Status Never Smoker Leann rangel [facility] 10/25/2020 16:28:58 How Much Tobacco Do You Chew? None Information not available 10/25/2020 Do You Or Have You Ever Used E-cigarettes Or Vape? Never Used Electronic Cigarettes Information not available 10/25/2020 Patients Living Environment Safe And Secure? Yes Information not available 09/12/2020 High Risk For Falls? No [email or web address] Information not available 09/12/2020 Readiness To Learn Accepting [email or web address] Information not available 09/12/2020 Barriers To Learning None [email or web address] Information not available 09/12/2020 Learning Preferences No Preferences [email or web address] Information not available 09/12/2020 Have You Had A Fever And/or Symptoms Of A Lower Respiratory Illness (cough, Difficulty Breathing, Etc)? Yes [email or web address] Information not available 09/12/2020 Have You Had Any Of These Symptoms: Chills ,Headache, Fatigue, Muscle Or Body Aches , Sore Throat, New Loss Of Taste Or Smell, Nausea Or Vomiting, Or Diarrhea? No [email or web address] Information not available 09/12/2020 Have You Had A COVID-19 Vaccine In The Last 7 Days? No [email or web address] Information not available 09/12/2020 What Was The Date Of Your Most Recent Tobacco Screening? 09/12/2020 Information not available 10/25/2020 What Is Your Current Pack Years? [email or web address] Information not available 10/25/2020 Do You Or Have You Ever Used Smokeless Tobacco? Never Used Smokeless Tobacco Information not available 10/25/2020 How Much Tobacco Do You Smoke? 1.5 PPD Information not available 10/25/2020 How Many Years Have You Smoked Tobacco? 30 Information not available 10/25/2020 Sex: Female Functional Status None recorded. Mental Status None recorded. Family History Relationship Description Onset Age of this Age Resolved Age Notes LastModified by Organization Details LastModified Time Father Myocardial infarction [email or web address] Not available 08/27 16:05:32 Medical History No medical history recorded. Gynecological History Statement/Question Response Date of Last Bone Density 02/28/2020 Abnormal Pap N Date of Last Pap Smear 06/29/2018 Date of Last Colonoscopy 06/29/2009 Date of Last Mammogram 02/28/2020 Mammogram in Past 24 months Y Would you like to schedule Mammogram Viridiana ointment? N Obstetrics History GPAL:G 0 P 0 0 0 0 Type Value Multiple Births 0 Full Term 0 Induced 0 Spontaneous 0 Premature 0 Living 0 Ectopics 0 Total 0 Immunizations Vaccine Type Date Status Note Provider Nam e and Address Organization Details Recorded Time zoster recombinant 9 completed Moody rangel, [facility] 09/12/2020 16:02:53 Influenza, split virus, quadrivalent, preservative 0 completed Moody rangel, [facility] 09/12/2020 16:03:04 COVID-19, mRNA, LNP-S, PF, 100 mcg/0.5mL dose or 50 mcg/0.25mL dose 1 completed [facility], [facility] 10/31/2020 12:24:07 Past Encounters Encounter ID Performer Location Encounter Start Date Encounter Closed Date Diagnosis/Indication Diagnosis SNOMED-CT Code Diagnosis ICD10 Code Diagnosis Note [id number] Yanelis Smith MD [facility] [address] [place] [address] 09/12/2020 14:54:51 09/12/2020 17:02:06 Body mass index 20-24 - normal 472071486 Z68.20 Hypertensive disorder 38 042496 I10 Asthma 130300009 J45.90 9 Chronic ob structive pulmonary disease 82808857 J44.9 Allergic rhinitis 429269 04 J30.9 Gastroesop hageal reflux disease 173214446 K21.9 Tobacco de pendence syndrome 31807368 F17.210 Osteopenia 099828767 M85 .80 History of polyp of colon 090548957 Z86.010 Spinal abraham nosis in cervical region 72234282 M48.02 Spinal abraham nosis of lumbar region 43511380 M48.061 Chronic back pain 469583 002 M54.9 Spasm of back muscles 20 6228082 M62.830 Active or passive immunization 990553329 Z23 Endocrine/ metabolic screening 082184875 Z13.228 Diabetes m ellitus screening 043736304 Z13.1 Hepatitis C screening 41 5461810 Z11.59 Screening for malignant neoplasm of colon 760440139 Z12.11 Electrocar diogram abnormal 444717183 R94.31 [facility] risk for cardiovascular event 371799921 Z91.89 Medication monitoring 39 0088122 Z51.81 [place] PDMP {{reviewed personally * reviewed by delegate and findings discussed with ina rivas provider}} . [id number] Yanelis Smith MD [facility] [address] [place] [address] 10/25/2020 16:09:34 10/25/2020 17:52:02 Coronary arteriosclerosis 64156292 I25.10 Standard c hest X-ray abnormal 337122837 R93.89 Electrocar diogram abnormal 829515512 R94.31 Hepatitis C antibody detected 239208227 Z86.19 Abnormal urinalysis 1672 01603 R82.90 Vitamin D deficiency 347 82629 E55.9 Liver mass 213289171 R16 .0 Tobacco de pendence syndrome 85538246 F17.210 Severe chr onic obstructive pulmonary disease 046815667 J44.9 Spinal abraham nosis in cervical region 40865810 M48.02 Spinal abraham nosis of lumbar region 72149016 M48.061 Review of prescription drug monitoring program record done [id number] 58360 Z76.89 Active or passive immunization 242248925 Z23 [id number] Catherine BOYLE [facility] [address] [place] [address] 10/31/2020 12:21:50 10/31/2020 13:03:50 Screening for malignant neoplasm of colon 518672437 Z12.11 Hepatitis C antibody detected 472953245 Z86.19 she has gotten a call from Dr. Abdi, waiting to schedule Abnormal urinalysis 1672 58071 R82.90 Primary hyperparathyroidism 72949068 E21.0 History of calculus of kidney 992069270 Z87.442 Chronic back pain 796931 002 G89.29 Hypertensive disorder 38 416790 I10 [id number] Yanelis Smith MD [facility] [address] [place] [address] 11/13/2020 15:12:38 11/13/2020 16:41:19 Severe chronic obstructive pulmonary disease 371520016 J44.9 Tobacco de pendence syndrome 78581512 F17.210 Pulmonary emphysema 8743 3001 J43.9 Chronic atelectasis 1237 09417 J98.11 Calculus i n renal pelvis 077830109 N20.0 Viral hepatitis C 279532 07 B19.20 Solitary n odule of lung 942284586 R91.1 Spinal abraham nosis in cervical region 05540779 M48.02 Thoracic spondylosis 387 036364 M47.814 Spinal abraham nosis of lumbar region 87918889 M48.061 Chronic back pain 944010 002 M54.9 Hypoxemia 308772258 R09. 02 Review of prescription drug monitoring program record done 7545879487 09856 Z76.89 At [facility] risk for cardiovascular event 061492549 Z91.89 Gastroesop hageal reflux disease 009807025 K21.9 Hypertensive disorder 38 474833 I10 Vitamin D deficiency 347 72120 E55.9 Chronic hy poxemic respiratory failure 131880688 J96.11 [id number] Catherine BOYLE [facility] [address] [place] [address] 11/20/2020 14:27:13 11/20/2020 14:57:22 Chronic hypoxemic respiratory failure 838161283 J96.11 Viral hepatitis C 718533 07 B19.20 Tobacco de pendence syndrome 66795521 F17.200 Chronic atelectasis 1237 93126 J98.11 Health Concerns Section Related Observation LastModified by Organization Detai ls LastModified Time None Recorded Concern Status LastModified by Organization Details LastModified Time None Recorded Advance Directives Directive None Recorded Payers Encounter Date Sequence Insurance Name Policy Number Policy Langford Covered Member ID Langford Member ID Guarantor Name 09/12/2020 1 EAST - DOS PRIOR TO 2024 - [employer] () Jackie Hough [id number] Jackie Hough 10/25/2020 1 EAST - DOS PRIOR TO 2024 - [employer] () Jackie Hough [id number] Jackie Hough 10/31/2020 1 EAST - DOS PRIOR TO 2024 - [employer] () Jackie Becker Holdreith [id number] Jackie [facility] 11/13/2020 1 EAST - DOS PRIOR TO 2024 - [employer] () Jackie Watersreith [id number] Jackie Watersrekael 11/20/2020 1 EAST - DOS PRIOR TO 2024 - [employer] () Jackie Becker Holdreith [id number] [facility] Notes Date Note Type Note Provider Name and Address Organization Details Recorded Time 09/12/2020 text/html 60-year-old [facility] female presenting to [facility] point of care; comorbidities significant for hypertension reactive airway disease as well as obstructive lung disease in the setting of nicotine dependence, contemplative, comorbid allergic rhinitis GERD osteopenia and chronic neck and back pain due to spinal stenosis of cervical as well as lumbar region significant paraspinous muscle spasms, denies cauda equina symptomatology, patient denies constitutional symptoms fevers/chills nausea emesis diarrhea constipation abdominal pain and flank pain changes in bowel or bladder habits vaginal discharge/ vaginal bleeding pelvic pain dyspareunia breast lump/breast pain nipple discharge skin changes lymphadenopathy rashes palpitations chest pain dyspnea or orthopnea extremity edema syncope/presyncope headache visual changes neurological deficits, denies signs/symptoms of psychosis, denies suicidal/homicidal ideations. Comprehensive PFSH was performed by PCP during this encounter and reviewed with the patient. Yanelis Smith MD [facility] [address], [address], [facility] [place] [facility] 09/17/2020 20:38:56 10/25/2020 text/html 60-year-old [place] female presenting for follow-up initial evaluation, discussed laboratory chemistries and imaging modalities comorbidities significant for hypertension reactive airway disease as well as obstructive lung disease in the setting of nicotine dependence, contemplative, comorbid allergic rhinitis GERD osteopenia and chronic neck and back pain due to spinal stenosis of cervical as well as lumbar region significant paraspinous muscle spasms, denies cauda equina symptomatology, patient denies constitutional symptoms fevers/chills nausea emesis diarrhea constipation abdominal pain and flank pain changes in bowel or bladder habits vaginal discharge/ vaginal bleeding pelvic pain dyspareunia breast lump/breast pain nipple discharge skin changes lymphadenopathy rashes palpitations chest pain dyspnea or orthopnea extremity edema syncope/presyncope headache visual changes neurological deficits, denies signs/symptoms of psychosis, denies suicidal/homicidal ideations. Comprehensive PFSH was performed by PCP during this encounter and reviewed with the patient. Yanelis Smith MD [address] [facility], [place], [address], [facility] 10/26/2020 20:44:24 10/31/2020 text/html Patient acknowle dged, consented, and participated in this virtual visit which was conducted using {{telephone only* secure real time audio and video}}. We discussed her medications, abnormal labs, specialist. Patient also complained for half of the conversation that urine wasn't getting done correctly, things needed to be rushed. I told her I wanted her to go back to urology. She asked to get cathed. Denied abnormal urine. I informed we could do another but she refused. We discussed her BP meds taking two. She watches her BP and it is normal. But she wanted to know how could she get off the medication. I informed her of diet, exercise. Catherine BOYLE [address], [place], [address], [facility] 10/31/2020 12:57:40 11/13/2020 text/html 60-year-old [place] female presenting for follow-up evaluation, discussed laboratory chemistries and imaging modalities comorbidities significant for hypertension reactive airway disease as well as obstructive lung disease in the setting of nicotine dependence, contemplative, comorbid allergic rhinitis GERD osteopenia and chronic neck and back pain due to spinal stenosis of cervical as well as lumbar region significant paraspinous muscle spasms, denies cauda equina symptomatology, patient denies constitutional symptoms fevers/chills nausea emesis diarrhea constipation abdominal pain and flank pain changes in bowel or bladder habits vaginal discharge/ vaginal bleeding pelvic pain dyspareunia breast lump/breast pain nipple discharge skin changes lymphadenopathy rashes palpitations chest pain dyspnea or orthopnea extremity edema syncope/presyncope headache visual changes neurological deficits, denies signs/symptoms of psychosis, denies suicidal/homicidal ideations. patient presenting hypoxemic, supplemental oxygen was applied, six-minute walk test with significant decrease in oxygen saturation to a shahana of 84% when ambulating without supplemental O2, recovering to 94% with O2 at rest and requiring 4L of supplemental oxygen while ambulating. 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 Comprehensive PFSH was performed by PCP during this encounter and reviewed with the patient. Yanelis Smith MD [address] [place] [address], [address], [facility] 11/15/2020 11:53:07 11/20/2020 text/html 60 year old presenting today for follow up on medication. She is taking the inhaler with no issues. She is going to follow up with GI in regards to her hep c. We discussed smoking cessation. We also discussed her referrals and who has called and made what appointments. She did not want to use the oxygen that Dr. Smith ordered but I informed her she needed to. Catherine BOYLE [address] [place] [address], [place], [address], [facility] 11/20/2020 15:28:10 OBGyn Episode No OBEpisode recorded.
--- OUTSIDE RECORDS SUMMARY | 2024-10-17 17:46 | XMS_ITS | Encounter Summary ---
Author Organization [facility] Address [address] [place] [address] Care Team Providers Care Gas Main And Line Fitter Name Role Phone Rosario Malave MD Primary Care Provider [phone]- [phone] Macarena Mott NP Primary Care Provider [phone] [phone] Encounter Details Date Type Department Care Team (Late st Contact Info) Description 03/28/2022 Clicktivated Message Enc [facility] Family Medicine [place] [address] [place] [address] [employer], [facility] Provider Referral Social History Tobacco Use Types Packs/Day Years [...] Total Score: 2 07/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
--- OUTSIDE RECORDS SUMMARY | 2024-10-17 17:46 | XMS_ITS | Encounter Summary ---
Author Organization [facility] Address [address] [place] [address] Care Team Providers Care Ring Cutter Lathe Operator Name Role Phone Rosario Malave MD Primary Care Provider [phone]- [phone] Macarena Mott NP Primary Care Provider [phone] [phone] Encounter Details Date Type Department Care Team (Late st Contact Info) Description 09/12/2021 [email or web address] Message Enc [facility] Family Medicine [facility] [address] [address] [place] [address] Rosario Malave MD [address] [place] [address] Med refill Social History Tobacco Use Types Packs/Day Years [...] Coronavirus/COVID-19? No / Unsure 08/26/2021 11:19 AM TOOL COORDINATOR documented as of this encounter Plan of Treatment Not on file documented as of this encounter Visit Diagnoses Not on filedocumented in this encounter Additional Health Concerns Assessment Noted Time PHQ-9 Depression Total Score: 2 07/23/19 22 2:07 PM TOOL COORDINATOR documented as of this encounter Care Teams Ring Cutter Lathe Operator Relationship Specialty Start Date End Date Rosario Malave MD PCP - General FAMILY PRACTICE 04/04/21 09/08/22 Macarena Mott NP PCP - General Nurse Practitioner Family 09/09/22 documented as of this encounter
--- OUTSIDE RECORDS SUMMARY | 2024-10-17 17:46 | XMS_ITS | Encounter Summary ---
Author Organization [facility] Address [address] [place] [address] Care Team Providers Care Pond Supervisor Name Role Phone Rosario Malave MD Primary Care Provider +1- [phone] Macarena Mott NP Primary Care Provider +1 -[phone] Encounter Details Date Type Department Care Team (Late st Contact Info) Description 10/28/2021 Photowhoa Message Enc [facility] Family Medicine [facility] [address] [place] [address] [employer] [employer], [facility] Provider Oxygen Social History Tobacco Use Types Packs/Day [...] Total Score: 2 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
== END 2024-10-17 16:00 | disposition home or self-care (01) ==
PROVIDERS: PCP Family Medicine; Visit Provider Internal Medicine Pulmonary Disease
DX: J44.9 Chronic obstructive pulmonary disease, unspecified (principal); R91.8 Other nonspecific abnormal finding of lung field
CPT/HCPCS: 71250

== ENCOUNTER 2025-04-24 11:41 | Outpatient (CLI) | payer OTHER, SELFPAY ==
--- NOTE | ~2025-04-24 | CT_ITS ---
Exam: CT chest without contrast Clinical History: [R91.8 ] Comparison: [ CTA chest 425; CT chest 08/18/2023] Technique: Multiple axial CT images of the chest without with IV contrast. Sagittal and coronal reformatted images were obtained. FINDINGS: Lungs and pleura: Tracheobronchial tree is patent. Severe emphysema similar to the prior study. No pleural effusion. Stable pulmonary nodules in the left lung. There are a few new small to moderate-sized bandlike and patchy opacities in the dependent portions of the lower lobes. There are few small subpleural reticular opacities scattered throughout both lungs similar to the prior study. Grossly stable triangular consolidation in the right upper lobe with pleural tags. Mediastinum and pulmonary jeremías: [ No mass or adenopathy.] Axillary/intramammary and supraclavicular: [ No mass or adenopathy.] Heart and great vessels: [ Normal heart size.[ [ No pericardial effusion.] [ No aneurysm.] There are a few coronary artery calcifications. Mild atherosclerotic disease in the thoracic aorta. Chest Wall: [ Unremarkable.] Upper Abdomen: Grossly stable 1.8 cm left adrenal nodule. An adrenal mass MRI is recommended. Osseous structures: [ No acute fracture or destructive lesion.] [ Multilevel degenerative change in the visualized spine.] Additional findings: [ None of significance.] IMPRESSION: 1. There are a few new small to moderate-sized bandlike and patchy opacities in the dependent portions of the lower lobes. Differential includes atelectasis or infiltrates. Other etiologies are less likely but possible. A follow-up chest CT in 3 months is recommended. 2. Stable pulmonary nodules. 3. Stable triangular consolidation in the right upper lobe. 4. There is a stable severe emphysema. 5. Grossly stable 1.8 cm left adrenal nodule as compared to the study from 04/18/2024. An adrenal mass MRI is recommended. Reviewed, dictated and finalized at location Q. IMPRESSION: 1. There are a few new small to moderate-sized bandlike and patchy opacities in the dependent portions of the lower lobes. Differential includes atelectasis o r infiltrates. Other etiologies are less likely but possible. A follow-up chest CT in 3 months is recommended. 2. Stable pulmonary nodules. 3. Stable triangular consolidation in the right upper lobe. 4. There is a stable severe emphysema. 5. Grossly stable 1.8 cm left adrenal nodule as compared to the study from 03/30. An adrenal mass MRI is recommended.
--- OUTSIDE RECORDS SUMMARY | 2025-04-24 13:21 | XMS_ITS | Clinical Summary ---
Author Organization [facility] Address [address] [place] [address] Care Team Providers Care Senior Cognos Developer Name Role Phone Rosario Malave MD Primary Care Provide r Source Comments [facility],non-owned Affiliates and Associated Physician Practices is amultiple site organization consisting of ambulatory clinics and hospital sitesin [place], [place], [place] and [place]. This disclosure is being madepursuant to the Care Everywhere program and may not contain all information available regarding this patient. Last updated 18.[facility] Allergies Active Allergy Reactions Criticality Noted Date [...] healthcare Last Assessment & Plan: Referred to [facility] hepartitis B core antibody non reactive No [...] Father Hypertension Father Other - Cardiac Father [place] Asthma Maternal Grandmother CVA Mother Cancer - [...] 12:43 PM CDT Height 171.5 cm (5' 7.5) 02/28/2022 12:43 PM CD T Body Mass [...] - COLON CA SCREENING 1961 MAMMOGRAM 1961 HIV SCREENING 1976 DTAP/TDAP/TD VACCINES (1 - Tdap) 1980 PNEUMOCOCCAL VACCINE 50+ (1 of 2 - PCV) 1980 PAP SMEAR 1982 ZOSTER VACCINE (1 of 2) 2011 Respiratory Syncytial Virus (RSV) Vaccine Pt: or over 60 yrs (1 - Risk 60-74 years 1-dose series) 2021 HEPATITIS B VACCINE (2 of 3 - 19+ 3-dose series) 10/20/2021 09/22/2021 DEPRESSION SCREENING 06/29/2024 COVID-19 VACCINE (3 - 2024- season) 2025 01/31/2021, 10/30/2020 INFLUENZA VACCINE (#1) 2025 , 05/24/2018, 06/04/2017, Additional history exists LIPID TESTING [...] all medications as prescribed Insurance Care Teams Senior Cognos Developer Relationship Specialty Start Date End Date Rosario Malave MD PCP - General 10/31/21
== END 2025-04-24 11:42 | disposition home or self-care (01) ==
PROVIDERS: PCP Family Medicine; Visit Provider Internal Medicine Pulmonary Disease
DX: R91.8 Other nonspecific abnormal finding of lung field (principal); J43.9 Emphysema, unspecified; E27.8 Other specified disorders of adrenal gland
CPT/HCPCS: 71250